=== PATIENT | male | born 1995 | race Caucasian/White ===

== ENCOUNTER 2021-09-09 19:40 | Emergency (ER) | payer OTHER, SELFPAY ==
[2021-09-09 19:43] VITALS: BP 134/82; PULSE 105; RESP 18; TEMP 36.4; O2SAT 100
[2021-09-09 19:46] LABS: Glucose Point of Care 256 mg/dl (65-105)
[2021-09-09 20:37] VITALS: BP 142/93; PULSE 100; RESP 22; O2SAT 96
[2021-09-09] MEDS: ONDANSETRON INJ 4 MG/2 ML VIAL IV PUSH (20:51)
[2021-09-09] MEDS: KETOROLAC 30 MG/ML VIAL (*BKC) IV PUSH (20:52)
[2021-09-09] MEDS: SODIUM CHLORIDE 0.9% IV 1,000 ML 999 ML IV CONT ×2 (20:53→22:17)
[2021-09-09 21:12] LABS: Alveolar/Arterial O2 Gradient 26.5 mmHg; Base Excess ABG -2.4 mEq/l (+/-2.0); Carboxyhemoglobin 1.5 % THb (0-2.0); Fractional Inspired Oxygen 21 %; HCO3 ABG 21.7 mEq/l (22.0-26.0); Methemoglobin ABG 0.3 %THb (0-1.5); Oxygen Content ABG 19.5 %vol (16.0-22.0); Oxyhemoglobin 94.4 % THb (90.0-100.0); PCO2 ABG 35.8 mmHg (35.0-45.0); PO2 ABG 80.4 mmHg (80.0-100.0); PO2 FiO2 Ratio Arterial Blood 3.83 %; Reduced Hemoglobin 3.8 %THb (0-5.0); Total Hemoglobin 14.7 g/dL (12.0-18.0); pH ABG 7.401 (7.350-7.450)
[2021-09-09 21:13] LABS: Device ROOM AIR; Modified Allen's Test Pass; Site Drawn RIGHT RADIAL
[2021-09-09 21:18] LABS: Basophils Percent Auto 0.4 % (0.2-1.2); Eosinophils Absolute Auto 0.1 K/mm3 (0-0.3); Eosinophils Percent Auto 0.5 % (0-4.4); Hematocrit 43.8 % (42.0-52.0); Hemoglobin 15.1 g/dL (14.0-18.0); Immature Granulocyte Absolute 0.03 K/mm3 (0.00-0.031); Immature Granulocyte Percent A 0.3 % (0-0.5); Lymphocytes Absolute Auto 1.11 K/mm3 (0.9-3.2); Lymphocytes Percent Auto 10.9 % (18.3-44.2); Mean Corpuscular HGB Conc 34.5 g/dl (32-36); Mean Corpuscular Hemoglobin 29.8 pg (26-34); Mean Corpuscular Volume 86.4 fl (80-100); Mean Platelet Volume 10.7 fl (7.4-10.4); Monocytes Absolute Auto 0.4 K/mm3 (0.1-0.6); Monocytes Percent Auto 4.2 % (2.6-8.5); Neutrophils Absolute Auto 8.5 K/mm3 (1.3-6.7); Neutrophils Percent Auto 83.7 % (45.5-73.1); Platelet Count Result 187 k/mm3 (150-375); Red Blood Count 5.07 M/mm3 (4.6-6.20); Red Cell Distribution Width 12.9 % (11.5-14.5); White Blood Count 10.2 K/mm3 (4.5-10.0)
[2021-09-09 21:35] LABS: Beta-Hydroxybutyrate/Acetoacetate 2.83 mmol/L (0.02-0.27)
[2021-09-09 21:55] LABS: Alanine Aminotransferase 33 U/L (6-50); Albumin Level 4.1 g/dL (3.5-5.1); Alkaline Phosphatase 105 U/L (38-126); Anion Gap 10 mmol/L (8-16); Aspartate Amino Transferase 55 U/L (17-59); Bilirubin,Total 4.3 mg/dL (0.2-1.3); Blood Urea Nitrogen 19 mg/dL (9-20); Calcium 8.6 mg/dL (8.4-10.2); Carbon Dioxide 23 mmol/L (22-30); Chloride 105 mmol/L (98-107); Estimated CRCL calculation 129 ml/min; Estimated Glomerular Filt Rate > 60; Glucose 264 mg/dL (65-110); Magnesium 1.7 mg/dL (1.6-2.3); Phosphorus 3.5 mg/dL (2.5-4.5); Potassium 4.2 mmol/L (3.4-5.0); Sodium 138 mmol/L (137-145)
--- NOTE | 2021-09-09 22:04 | ED.GENADULT ---
HPI - General Adult General Chief complaint: Nausea/Vomiting/Diarrhea <Delvis Moreno MD - Last Filed: 09/09/21 22:12> Stated complaint: diabetes, cant eat or drink, emesis <Delvis Moreno MD - Last Filed: 09/09/21 22:12> Time Seen by Provider: 09/09/21 19:49 <Delvis Moreno MD - Last Filed: 09/09/21 22:12> History of Present Illness HPI narrative: Patient is a 25-year-old male who presents ER with nausea and vomiting and headache. Patient was recently started on OmniPod. He is doing well but was out of town working. She then started having vomiting. He ended up taking the OmniPod off a day ago. He has not checked his sugars today. He has been sleeping for the last 40 hours according to his mother. Patient reports he just feels weak and tired and nauseated. There is concerned he could have DKA so they brought him into the ER. They did not check sugars. He has no fevers or chills or sweats. Headache is aching and over the crown of his head. <Delvis Moreno MD - Last Filed: 09/09/21 22:12> Related Data Allergies/adverse reactions: Allergies Allergy/AdvReac Type Severity Reaction Status Date / Time No Known Allergies Allergy Unverified 02/19/15 08:07 <Delvis Moreno MD - Last Filed: 09/09/21 22:12> Review of Systems Review of Systems: All systems reviewed & are unremarkable except as noted in HPI and below <Delvis Moreno MD - Last Filed: 09/09/21 22:12> Constitutional: Constitutional: Denies chills, Reports fatigue and Denies fever(s) <Delvis Moreno MD - Last Filed: 09/09/21 22:12> ENT: Denies nasal congestion and Denies sore throat <Delvis Moreno MD - Last Filed: 09/09/21 22:12> Respiratory: Respiratory: Denies cough and Denies dyspnea <Delvis Moreno MD - Last Filed: 09/09/21 22:12> Gastrointestinal: Gastrointestinal: Denies abdominal pain, Denies diarrhea, Reports nausea and Reports vomiting <Delvis Moreno MD - Last Filed: 09/09/21 22:12> Musculoskeletal: Musculoskeletal: Reports myalgias and Denies muscle cramps <Delvsi Moreno MD - Last Filed: 09/09/21 22:12> Neurologic: Denies syncope, Reports headache(s), Denies focal weakness and Denies numbness <Delvis Moreno MD - Last Filed: 09/09/21 22:12> PMFSH Past Medical History Medical History: Medical History (Updated 09/10/21 @ 00:37 by Miladys Stern MD) Diabetes type I History of ulcerative colitis <Delvis Moreno MD - Last Filed: 09/09/21 22:12> Surgical History Surgical History: Surgical History (Updated 09/09/21 @ 22:09 by Delvis Moreno MD) No pertinent past surgical history <Delvis Moreno MD - Last Filed: 09/09/21 22:12> Exam Narrative: GENERAL: Fatigue-appearing, well-nourished, and in no acute distress. HEAD: Normocephalic, atraumatic. EYES: PERRL and EOMI. NECK: Supple. Full range of motion without meningismus. CHEST: Clear to auscultation. No respiratory distress. HEART: Tachycardic and regular. Normal peripheral pulses. ABDOMEN: Soft, nontender, nondistended. EXTREMITIES: Normal range of motion. No edema. SKIN: Warm, dry, no rash. NEURO: Alert and oriented x3. <Delvis Moreno MD - Last Filed: 09/09/21 22:12> Course Reevaluation(s) Reevaluation #1: Patient reports no change in headache after Toradol. Patient has full range of motion of neck without meningismus. No neurologic symptoms. Will give morphine for pain. Offered lumbar puncture which patient declined. <Delvis Moreno MD - Last Filed: 09/09/21 22:12> Date: 09/09/21 <Delvis Moreno MD - Last Filed: 09/09/21 22:12> Time: 22:11 <Delvis Moreno MD - Last Filed: 09/09/21 22:12> Reevaluation #2: PAtient states his headache has resolved. He denies nausea and vomiting. BS still elevated at 266 so will give insulin. Patient to be PO challenged. patient does not have increase AGAP or acidosis consistent with DKA.
[2021-09-09] MEDS: MORPHINE SULFATE (*CRX) 4 MG/ML INJ IV PUSH (22:17)
[2021-09-09 23:06] LABS: Influenza A QL RT-PCR Negative (Negative); Influenza B QL RT-PCR Negative (Negative); SARS-CoV-2 RNA PCR Negative
[2021-09-09 23:24] LABS: Glucose Point of Care 266 mg/dl (65-105)
[2021-09-09 23:55] LABS: Appearance Urine Clear (Clear); Bilirubin Urine 2+ (Negative); Blood Urine Negative (Negative); Color Urine Yellow (Yellow); Glucose Urine UA 2+ mg/dL (Negative); Ketones Urine 4+ mg/dL (Negative); Leukocyte Esterase Ur Negative LEU/UL (Negative); Nitrate Urine Negative (Negative); Protein Urine Trace mg/dL (Negative); Specific Grav Ur >= 1.030 (1.001-1.035); pH Urine 5.5 (5.0-9.0)
[2021-09-10 00:05] LABS: Add Urine Microscopic? YES; Mucus Urine Rare /lpf; RBC Urine 0-2 /hpf (0-2); WBC Urine 0-3 /hpf
[2021-09-10] MEDS: INSULIN HUMAN REGULAR (*BKC) 100 UNITS/ML SUB-Q (00:13)
[2021-09-10 00:19] LABS: Lipase 21 U/L (23-300)
[2021-09-10 00:51] VITALS: BP 129/85; PULSE 96; RESP 22; O2SAT 97
--- NOTE | 2021-09-10 11:31 | PC.NURSE ---
RX was left behind upon patient discharge. RX called into [facility] in [place] after speaking with patient. Patient notified and will last picker.
== END 2021-09-10 01:01 | disposition home or self-care (01) ==
PROVIDERS: General Practice; Emergency Provider Emergency Medicine; PCP Family Medicine
DX: E10.65 Type 1 diabetes mellitus with hyperglycemia (principal); R11.2 Nausea with vomiting, unspecified; R51.9 Headache, unspecified; E86.0 Dehydration; Z20.822 Contact with and (suspected) exposure to COVID-19; Z79.4 Long term (current) use of insulin
CPT/HCPCS: 36415; 36600; 80053; 81001; 82010; 82375; 82805; 82948; 83050; 83690; 83735; 84100; 85025; 87502; 96361; 96374; 96375; 99284; C9803; J1815; J1885; J2270; J2405; J7030; U0003; U0005

== ENCOUNTER 2021-10-27 10:17 | Inpatient (IN) | payer OTHER, SELFPAY ==
[2021-10-27] VITALS (8 sets, daily range): BP systolic 132–142; BP diastolic 86–90; PULSE 82–93; RESP 14–20; TEMP 36.6–36.8; O2SAT 98–100; BMI 27.8
--- NOTE | ~2021-10-27 | US_ITS ---
EXAMINATION: US abdomen limited DATE: 10/27/2021 13:21 INDICATION: Abdominal pain. Vomiting. TECHNIQUE: Multiple grayscale and Doppler ultrasound images of the abdomen were obtained. COMPARISON: CT abdomen and pelvis 10/27/2021 FINDINGS: The visualized portions of the head and body of the pancreas are normal. The liver demonstr ates a nodular surface contour, consistent with cirrhosis. There is normal flow in main portal vein. The gallbladder is decompressed and contains gallstones. Gallbladder wall thickening is likely second buzz to chronic liver disease. There is no sonographic Peterson sign. The common duct is normal and benjie ures 4 mm. IMPRESSION: 1. Cholelithiasis. No specific evidence of acute cholecystitis. 2. Cirrhosis of the liver. Reviewed, dictated and finalized at location A.
--- NOTE | ~2021-10-27 | CT_ITS ---
EXAMINATION: CT abdomen pelvis w con DATE: 10/27/2021 12:02 INDICATION: Vomiting. Leukocytosis. TECHNIQUE: Computed tomography (CT) of the abdomen and pelvis was performed with 100 CC Omnipaque 300 intravenous contrast. Automated exposure control and iterative reconstruction technique were employe d. Exam dose: 520.47 mGy-cm total exam DLP. COMPARISON: 03/03/2015 CT abdomen pelvis FINDINGS: There is minimal dependent atelectasis in the lower lobes. Normal heart size. No pericardial or pleural effusion. There is thickening of the gallbladder wall and minimal pericholecystic fluid, new findings since ; consider acute cholecystitis. No bile duct or pancreatic duct dilatation is detected. No hepatic, splenic, pancreatic, and adrenal or renal space-occupying mass lesion is detected. No urinary tract calculus or hydroureteronephrosis. The urinary bladder and prostate gland are unremarkable. Normal caliber of the abdominal aorta. No intraperitoneal or retroperitoneal or pelvic mass lesion or adenopathy or ascites. Normal appendix. No bowel obstruction, bowel wall thickening, pneumatosis or intraperitoneal free air . IMPRESSION: Gallbladder wall thickening and minimal pericholecystic fluid; consider acute cholecysti tis. Consider gallbladder ultrasound examination and possibly radionuclide hepatobiliary scan as clin ically appropriate Normal appendix Reviewed, dictated and finalized at Location [facility]. Reviewed, dictated and finalized at location B. IMPRESSION: Gallbladder wall thickening and minimal pericholecystic fluid; con manager housekeeping acute cholecystitis. Consider gallbladder ultrasound examination and poss ibly radionuclide hepatobiliary scan as clinically appropriate Normal appendix
[2021-10-27 10:25] LABS: Glucose Point of Care 295 mg/dl (65-105)
[2021-10-27 10:45] LABS: Basophils Absolute Auto 0.1 K/mm3 (0.0-0.1); Basophils Percent Auto 0.4 % (0.2-1.2); Eosinophils Percent Auto 0.3 % (0-4.4); Hematocrit 42.9 % (42.0-52.0); Hemoglobin 15.4 g/dL (14.0-18.0); Immature Granulocyte Absolute 0.07 K/mm3 (0.00-0.031); Immature Granulocyte Percent A 0.5 % (0-0.5); Lymphocytes Absolute Auto 1.51 K/mm3 (0.9-3.2); Lymphocytes Percent Auto 10.6 % (18.3-44.2); Mean Corpuscular HGB Conc 35.9 g/dl (32-36); Mean Corpuscular Hemoglobin 30.4 pg (26-34); Mean Corpuscular Volume 84.6 fl (80-100); Mean Platelet Volume 10.4 fl (7.4-10.4); Monocytes Absolute Auto 0.9 K/mm3 (0.1-0.6); Monocytes Percent Auto 6.4 % (2.6-8.5); Neutrophils Absolute Auto 11.6 K/mm3 (1.3-6.7); Neutrophils Percent Auto 81.8 % (45.5-73.1); Platelet Count Result 204 k/mm3 (150-375); Red Blood Count 5.07 M/mm3 (4.6-6.20); Red Cell Distribution Width 13.2 % (11.5-14.5); White Blood Count 14.2 K/mm3 (4.5-10.0)
[2021-10-27 10:59] LABS: Alanine Aminotransferase 31 U/L (6-50); Alkaline Phosphatase 117 U/L (38-126); Anion Gap 18 mmol/L (8-16); Aspartate Amino Transferase 41 U/L (17-59); Bilirubin,Total 5.2 mg/dL (0.2-1.3); Blood Urea Nitrogen 20 mg/dL (9-20); Calcium 9.4 mg/dL (8.4-10.2); Carbon Dioxide 21 mmol/L (22-30); Chloride 102 mmol/L (98-107); Estimated CRCL calculation 103 ml/min; Estimated Glomerular Filt Rate > 60; Glucose 291 mg/dL (65-110); Magnesium 2.2 mg/dL (1.6-2.3); Phosphorus 3.9 mg/dL (2.5-4.5); Potassium 3.8 mmol/L (3.4-5.0); Sodium 141 mmol/L (137-145)
[2021-10-27 11:03] LABS: Beta-Hydroxybutyrate/Acetoacetate 4.33 mmol/L (0.02-0.27)
--- NOTE | 2021-10-27 11:06 | ED.RECABL ---
HPI - Recheck/Abnormal Lab/Rx General Chief Complaint: Recheck/Abnormal Lab/Rx <Dot Woodall PA-C - Last Filed: 10/27/21 14:48> Stated Complaint: type 1 diabetic, sugar over 350 <Dot Woodall PA-C - Last Filed: 10/27/21 14:48> Time Seen by Provider: 10/27/21 10:58 <Dot Woodall PA-C - Last Filed: 10/27/21 14:48> Source: patient <HESHAM Ramos Last Filed: 10/27/21 14:48> Mode of arrival: ambulatory <HESHAM Ramos Last Filed: 10/27/21 14:48> Limitations: no limitations <Dot Woodall PA-C - Last Filed: 10/27/21 14:48> History of Present Illness HPI narrative: This is a 26-year-old male that presents emergency department for nausea and vomiting. Ongoing over the last couple of days. Associated with elevation in his blood sugar. Reports he has been taking his insulin as prescribed. Has history of type 1 diabetes. No recent illness otherwise. Reports some abdominal pain, mostly with vomiting. Denies fever or diarrhea. <Dot Woodall PA-C - Last Filed: 10/27/21 14:48> Related Data Home Medications: Home Medications Medication Instructions Recorded Confirmed blood-glucose sensor (Dexcom G6 10/27/21 10/27/21 Sensor device) blood-glucose transmitter (Dexcom 10/27/21 10/27/21 G6 Transmitter device) insulin regular human 100 unit/mL See Rx Instructions .Route .COMPLEX 10/27/21 10/27/21 injection solution (Novolin R Regular U-100 Insulin) <HESHAM Ramos Last Filed: 10/27/21 14:48> Allergies/Adverse Reactions: Allergies Allergy/AdvReac Type Severity Reaction Status Date / Time No Known Allergies Allergy Verified 10/27/21 11:44 <HESHAM Ramos Last Filed: 10/27/21 14:48> Review of Systems Review of Systems: CONSTITUTIONAL: Denies fever GASTROINTESTINAL: Reports abdominal pain, nausea, vomiting. Denies diarrhea. GENITOURINARY: Denies dysuria <Dot Woodall PA-C - Last Filed: 10/27/21 14:48> All systems reviewed & are unremarkable except as noted in HPI and below <Dot Woodall PA-C - Last Filed: 10/27/21 14:48> PMFSH Past Medical History Medical History: Medical History Diabetes type I History of ulcerative colitis <Dot Woodall PA-C - Last Filed: 10/27/21 14:48> Surgical History Surgical History: Surgical History No pertinent past surgical history <Dot Woodall PA-C - Last Filed: 10/27/21 14:48> Social History Social History: Social History Smoking status: Former smoker Tobacco type: cigarettes Alcohol intake: current Drinks per week: 2 Substance use: never Spiritual care concerns: No <Dot Woodall PA-C - Last Filed: 10/27/21 14:48> Exam Narrative: GENERAL: Well-appearing, well-nourished, and in no acute distress. HEAD: Normocephalic, atraumatic. EYES: EOMI. CHEST: Clear to auscultation. No respiratory distress. No wheezes rales or rhonchi HEART: Regular rate and rhythm. No murmur heard. Normal peripheral pulses. ABDOMEN: Soft, nondistended, normal active bowel sounds. Mild tenderness to palpation throughout the abdomen, without guarding EXTREMITIES: Normal range of motion. No edema. SKIN: Warm, dry, no rash. NEURO: No focal deficits. Alert and oriented x3. PSYCH: Normal mood and affect <Dot Woodall PA-C - Last Filed: 10/27/21 14:48> Course BULK PLANT AGENT/PA Physician Supervision For this patient encounter, I reviewed the BULK PLANT AGENT or PA documentation, treatment plan, and medical decision making; and I had [id number] time with this patient. <Miladys Stern MD - Last Filed: 10/27/21 19:22> Vital Signs Vital signs: Vital Signs Temperature 98.1 F 10/27/21 10:18 Pulse Rate 93 10/27/21 10:18 Respiratory Rate 16 10/27/21 10:18 Blood P
[2021-10-27 11:31] LABS: Base Excess ABG -4.2 mEq/l (+/-2.0); Carboxyhemoglobin 1.4 % THb (0-2.0); Fractional Inspired Oxygen 21 %; HCO3 ABG 19.4 mEq/l (22.0-26.0); Methemoglobin ABG 0.3 %THb (0-1.5); Oxygen Content ABG 20.6 %vol (16.0-22.0); Oxygen Saturation ABG 97.4 % (95.0-100.0); Oxyhemoglobin 95.6 % THb (90.0-100.0); PCO2 ABG 31.9 mmHg (35.0-45.0); PO2 ABG 96.5 mmHg (80.0-100.0); Reduced Hemoglobin 2.7 %THb (0-5.0); Site Drawn RIGHT RADIAL; Total Hemoglobin 15.3 g/dL (12.0-18.0); pH ABG 7.402 (7.350-7.450)
[2021-10-27 11:32] LABS: Device ROOM AIR; Modified Allen's Test Pass
[2021-10-27] MEDS: FAMOTIDINE 20 MG/2 ML VIAL IV PUSH (11:35)
[2021-10-27] MEDS: ONDANSETRON INJ 4 MG/2 ML VIAL IV PUSH (11:35)
[2021-10-27] MEDS: SODIUM CHLORIDE 0.9% IV 1,000 ML 999 ML IV CONT ×3 (11:35→14:42)
--- NOTE | 2021-10-27 11:40 | PC.NURSE ---
pt unable to provide urine at this time and is refusing straight catheter.
[2021-10-27 12:40] LABS: SARS-CoV-2 RNA PCR Negative
[2021-10-27 13:36] LABS: Appearance Urine Clear (Clear); Bilirubin Urine 1+ (Negative); Blood Urine 1+ (Negative); Color Urine Yellow (Yellow); Glucose Urine UA 2+ mg/dL (Negative); Ketones Urine 4+ mg/dL (Negative); Leukocyte Esterase Ur Negative LEU/UL (Negative); Nitrate Urine Negative (Negative); Protein Urine Trace mg/dL (Negative); Urobilinogen Urine 0.2 mg/dL (<2.0); pH Urine 5.5 (5.0-9.0)
[2021-10-27 13:50] LABS: Mucus Urine Rare /lpf; RBC Urine 0-2 /hpf (0-2); WBC Urine 0-3 /hpf
[2021-10-27 13:54] LABS: Add Urine Microscopic? YES
[2021-10-27 14:06] LABS: Lipase 16 U/L (23-300)
[2021-10-27 14:21] LABS: Hemoglobin A1C 5.9 % (<5.7)
[2021-10-27 14:45] LABS: Glucose Point of Care 255 mg/dl (65-105)
--- NOTE | 2021-10-27 14:58 | PC.NURSE ---
This patient, Jamie Larry, was admitted to Medical Room 261-01. Patient/family oriented to hospital policies and general routines including ID bracelet, bed and alarms, visiting hours, pain management, procedures, bathroom and other care routines, personal items, smoking policy, room service/diet, and visiting hours. Information on how to activate the Rapid Response Team has been discussed. Patient/Family are encouraged to report perceived risks to care and to ask questions if they do not understand what they are told or what they should do.
--- NOTE | 2021-10-27 15:24 | PM.IMHP ---
H&P: HPI History of Present Illness Date/Time: 10/27/21 9480 Chief Complaint: Abnormal labs, glucose greater than 350 at home Narrative: This 26-year-old male patient with significant past medical history of type 1 diabetes mellitus, ulcerative colitis and chronic cirrhosis of the liver presents to the emergency room this morning with complaints of having nausea with vomiting for the past couple of days that is causing his glucose to elevate beyond what it normally is. Patient is normally very well controlled presenting with hemoglobin A1c of 5.9. He does utilize the Omnipod-insulin pump and he sees an annual giving director out of [address] [place] [address]. When his symptoms of nausea and vomiting began he denied any diarrhea and no fevers. As he was unable to maintain his hydration he presented to the emergency room today with complaints of nausea vomiting. On presentation to the emergency room his glucose was greater than 350. Workup was performed that was significant for white blood cell count of 14.2 with elevated absolute neutrophils, however no bandemia. Glucose on labs were recheck to be 291. His LFTs were normal but he does have hyperbilirubinemia with T bili of 5.2. His calculated anion gap is 18 and he is not acidotic as he demonstrates a normal pH on ABG. His beta hydroxy butyrate is 4.33. CT of the abdomen and pelvis demonstrates gallbladder wall thickening and minimal pericholecystic fluid, consider acute cholecystitis. In addition there was noted to be a normal appendix. Ultrasound of the gallbladder was performed based upon results of the CT scan that demonstrated cholelithiasis without any evidence of acute cholecystitis. Secondary finding of cirrhosis of the liver. In discussing the cirrhotic finding with patient he notes that he has had findings of cirrhosis of the liver ever since he was a child. He cannot recall whether not his bilirubin has been elevated in the past. He has been admitted to hospitalist service at this time for hydration, continuing management of nausea and pain. In addition we will trend his beta hydroxybutyrate as well as his metabolic panel to ensure no acidosis. Will consult GI and General surgery as well based upon findings of CT and ultrasound. Upon presentation to the for the patient scored high on the Burnett scale however denies any current suicide ideation. As per hospital policy because he had score high he is being moved to ICU for suicide precautions, although he has no current suicide plan. He will remain on medical patient and not ICU patient, will just be housed in the ICU for further and closer observation. At the time of my assessment patient is lying supine in bed in no acute distress. He has no complaints of chest pain, dyspnea and has not vomited since being here, although he does endorse being nauseated. He has not had any diarrhea. He denies any urinary burning, urgency, frequency, hematuria or dysuria. His specific type of insulin pump is an Omnipod Dash that this provider is familiar with, and his settings were checked according to his PDM. his basal rate is 1.2 units/hour with a ratio of 1:7, with a target glucose of 100 and a correction factor of 1 unit for every multiple of 40 greater than 120 glucose reading. Patient's pump is due to on SaturdayOctober 29 at 18 16. He acknowledges that he does not have any additional polyps with him as this is 1 that does have to be changed every 3 days. In an effort to minimize waste of insulin I am in agreement to allow him to continue to use his current come until at what time it expires in patient is agreeable to bolusing based upon our glucose readings. After expiration of his current pod he will have to transition to sliding scale insulin and he is agreeable. At the time of admission, this patient's home medications were not yet verified, and therefore could not be re-ordered. I do appreciate the following hospitalist for reviewing and
--- NOTE | 2021-10-27 16:39 | PC.NURSE ---
This patient, Jamie Larry, was transferred to ICU on 10/27/21 at 1640. Personal belongings sent with patient. Report given to DANYEL Mesa. Appropriate documentation sent with patient. During admission assessment patient answered questions on [place] Suicide scale that qualified him as a high risk patient. Statements include, I have had suicidal thoughts everyday since I was [age] years-old. I have had prior attempts with the over-administration and/or withholding of insulin. I have made a plan of suicide. Provider notified.
--- NOTE | 2021-10-27 16:55 | PC.NURSE ---
BEFORE PATIENT WAS BROUGHT TO ICU 3 I EXPRESSED TO FLOWER GROWER KASIE Conner RN THAT PATIENT SHOULD NOT HAVE INSULIN PUMP IN HIS CONTROL BECAUSE OF HIS ADMISSION TO CONSIDERING USING INSULIN PUMP TO HARM HIMSELF. KASIE Conner RN STATED THAT HE TALKED TO BORIS LEIGH NP ABOUT OUR CONCERNS BUT SHE FEELS PATIENT CAN SAFELY CONTINUE TO USE HIS INSULIN PUMP.
[2021-10-27] MEDS: SODIUM CHLORIDE 0.9% IV 1,000 ML 125 ML IV CONT (17:06)
[2021-10-27] MEDS: MORPHINE SULFATE (*CRX) 4 MG/ML INJ IV PUSH ×2 (17:07→20:48)
--- NOTE | 2021-10-27 17:24 | PC.NURSE ---
This patient, Jamie Larry, was received from [ [facility]] on 10/27/21 at 1630. Patient/family oriented to unit policies and routines. All belongings were still in patient's possession. Explained to him that he is now on suicidal precautions, why, and that this means all belongings including phone and insulin pump monitor will be locked up. Only thing not removed from patient was the insulin site injector. This site has no controls on it and the only thing patient could do with it is remove it from his arm. Patient denies all suicidal thoughts at this time. Says he has had some suicidal thoughts every day since he was 12; however, he hasn't had any today and doesn't have a current plan of how he would harm himself and he doesn't understand why this is all happening. He did admit that he has had suicidal attempts in the past that he was hospitalized for and that he has had brief in one ear and out the other thoughts about either taking to much insulin or not taking any to try and hurt himself; however he has not had any of these thoughts recently.
[2021-10-27 17:57] LABS: Alanine Aminotransferase 24 U/L (6-50); Albumin Level 3.8 g/dL (3.5-5.1); Alkaline Phosphatase 86 U/L (38-126); Anion Gap 10 mmol/L (8-16); Aspartate Amino Transferase 31 U/L (17-59); Bilirubin,Total 4.1 mg/dL (0.2-1.3); Blood Urea Nitrogen 18 mg/dL (9-20); Calcium 8.4 mg/dL (8.4-10.2); Carbon Dioxide 19 mmol/L (22-30); Chloride 108 mmol/L (98-107); Estimated CRCL calculation 127 ml/min; Estimated Glomerular Filt Rate > 60; Glucose 234 mg/dL (65-110); Sodium 137 mmol/L (137-145)
[2021-10-27 17:58] LABS: Bilirubin Indirect 3.8 mg/dL (0-1.1)
[2021-10-27 18:02] LABS: Beta-Hydroxybutyrate/Acetoacetate 3.85 mmol/L (0.02-0.27)
--- NOTE | 2021-10-27 18:03 | PC.NURSE ---
CALLED BORIS LEIGH NP TO DISCUSS SAFETY ISSUE WITH PATIENT CONTINUING TO USE INSULIN PUMP. SHE GAVE ME ORDERS FOR LANTUS DAILY, SLIDING SCALE INSULIN AND HUNG UP ON ME. INSULIN PUMP WILL BE REMOVED FROM PATIENT AND INSULIN ORDERS INSTITUTED.
[2021-10-27] MEDS: INSULIN HUMAN REGULAR (*BKC) 100 UNITS/ML SUB-Q (18:23)
[2021-10-27 18:28] LABS: Glucose Point of Care 238 mg/dl (65-105)
[2021-10-27 19:04] LABS: Thyroid Stimulating Hormone Reflex 0.479 uIU/mL (0.465-4.68)
[2021-10-27 20:57] LABS: Glucose Point of Care 175 mg/dl (65-105)
[2021-10-27] MEDS: INSULIN GLARGINE (*BKC) 100 UNITS/ML 20 UNITS SUB-Q (21:03)
[2021-10-28] MEDS: INSULIN HUMAN REGULAR (*BKC) 100 UNITS/ML SUB-Q ×4 (00:09→18:05)
[2021-10-28] MEDS: SODIUM CHLORIDE 0.9% IV 1,000 ML 125 ML IV CONT ×3 (00:13→16:26)
[2021-10-28 00:39] LABS: Glucose Point of Care 197 mg/dl (65-105)
[2021-10-28] MEDS: ACETAMINOPHEN 500 MG TABLET 1000 MG PO (00:48)
[2021-10-28 04:29] LABS: Basophils Percent Auto 0.7 % (0.2-1.2); Eosinophils Absolute Auto 0.1 K/mm3 (0-0.3); Eosinophils Percent Auto 2.2 % (0-4.4); Hemoglobin 12.5 g/dL (14.0-18.0); Immature Granulocyte Absolute 0.01 K/mm3 (0.00-0.031); Immature Granulocyte Percent A 0.2 % (0-0.5); Immature Platelet Fraction Pct 3.7 % (0.9-11.2); Lymphocytes Absolute Auto 1.54 K/mm3 (0.9-3.2); Lymphocytes Percent Auto 26.6 % (18.3-44.2); Mean Corpuscular HGB Conc 34.7 g/dl (32-36); Mean Corpuscular Hemoglobin 30.5 pg (26-34); Mean Corpuscular Volume 87.8 fl (80-100); Mean Platelet Volume 10.1 fl (7.4-10.4); Monocytes Absolute Auto 0.5 K/mm3 (0.1-0.6); Monocytes Percent Auto 7.8 % (2.6-8.5); Neutrophils Absolute Auto 3.6 K/mm3 (1.3-6.7); Neutrophils Percent Auto 62.5 % (45.5-73.1); Platelet Count Result 135 k/mm3 (150-375); Red Cell Distribution Width 12.9 % (11.5-14.5); White Blood Count 5.8 K/mm3 (4.5-10.0)
[2021-10-28 04:39] LABS: Alanine Aminotransferase 22 U/L (6-50); Albumin Level 3.3 g/dL (3.5-5.1); Alkaline Phosphatase 79 U/L (38-126); Anion Gap 9 mmol/L (8-16); Aspartate Amino Transferase 28 U/L (17-59); Bilirubin,Total 3.4 mg/dL (0.2-1.3); Blood Urea Nitrogen 14 mg/dL (9-20); Calcium 8.2 mg/dL (8.4-10.2); Carbon Dioxide 22 mmol/L (22-30); Chloride 107 mmol/L (98-107); Estimated CRCL calculation 127 ml/min; Estimated Glomerular Filt Rate > 60; Glucose 158 mg/dL (65-110); Potassium 3.6 mmol/L (3.4-5.0); Sodium 138 mmol/L (137-145)
[2021-10-28 06:00] VITALS: BP 132/84; PULSE 97; RESP 16; TEMP 36.8; O2SAT 97
[2021-10-28 06:12] LABS: Glucose Point of Care 156 mg/dl (65-105)
[2021-10-28 08:00] VITALS: BP 134/88; PULSE 85; RESP 18; TEMP 36.8; O2SAT 98
--- NOTE | 2021-10-28 09:53 | WPDGICN ---
Assessment and Plan Assessment and plan (1) Nausea and vomiting: Code(s): R11.2 - Nausea with vomiting, unspecified Status: Acute Assessment and Plan: he is not vomiting since just before admission. I suspect his nausea vomiting is it due in large part to his poorly controlled diabetes on admission. I am concerned however that he has lost about 10 lb recently and he has had other times when he is nauseated and blood sugar is normal. I told we may want to consider EGD before discharge. (2) Ulcerative colitis: Code(s): K51.90 - Ulcerative colitis, unspecified, without complications Status: Acute Assessment and Plan: This is a remote history. He states that he was diagnosed in [place]. He cannot remember how he was treated. He knows that he had a couple of colonoscopies and he was told that it was resolved. 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 He is not sure if he has been told that he had cirrhosis before. (4) Hyperbilirubinemia: Code(s): E80.6 - Other disorders of bilirubin metabolism Status: Acute Assessment and Plan: His bilirubin is a little high for Gilbert's syndrome. It is probably due to his cirrhosis. Want to rule out other etiologies. If this is from sclerosing cholangitis, I would suspect he would have some itching as well. Serology will be obtained for hepatitis and other studies as well Plan hepatitis serology serum ferritin ceruloplasmin ammonia level GI Consult Note Consult date/time: 10/28/21 09:53 this gentleman was admitted to the hospital because of nausea and vomiting that began a few days ago. He was found have a blood sugar greater than 350. He is on insulin, having been diabetic for 10 years. He uses Omni-pod for insulin delivery. He is followed by an vp digital marketing social media and crm. CT scan of the abdomen was done that showed cholelithiasis and also cirrhosis of the liver. The patient gives an interesting history of having been diagnosed with ulcerative colitis when he was in [place] about 15 years ago he has also is told that he had sclerosing cholangitis. He cannot recall if he was ever jaundiced he. He denies having itching or dark urine at this time. He states he is not a heavy drinker and has not had hepatitis. His bilirubin is elevated but transaminases are normal. He states that he has lost about 10 lb recently. He often has an upset stomach and is uncomfortable in the epigastric area now HPI: Jamie Larry is a 26 year old male Admitted with nausea, vomiting and diabetes of control. There also were concerns about depression or suicide ideas and therefore he was moved to intensive care unit. Review of Systems Review of Systems: All systems reviewed & are unremarkable except as noted in HPI and below PMFSH Past Medical History Medical History Diabetes type I History of ulcerative colitis Surgical History Surgical History No pertinent past surgical history Social History Social History Smoking status: Former smoker Tobacco type: cigarettes Alcohol intake: current Drinks per week: 2 Substance use: never Spiritual care concerns: No Meds Home Medications and Allergies Home Medications Medication Instructions Recorded Confirmed Type blood-glucose sensor (Dexcom G6 10/27/21 10/27/21 History Sensor device) blood-glucose transmitter (Dexcom 10/27/21 10/27/21 History G6 Transmitter device) insulin regular human 100 unit/mL See Rx Instructions .Route .COMPLEX 10/27/21 10/27/21 History injection solution (Novolin R
[2021-10-28 10:57] LABS: Ammonia < 9 umol/L (9-30)
--- NOTE | 2021-10-28 11:57 | PM.CNGS ---
Assessment and Plan Assessment and plan (1) Cholelithiasis and acute cholecystitis without obstruction: Code(s): K80.00 - Calculus of gallbladder with acute cholecystitis without obstruction Status: Acute Assessment and Plan: I have reviewed the CT and ultrasound and discussed the findings with the patient. He has evidence of acute calculous cholecystitis, but is also showing elevated liver enzymes and signs of cirrhosis on the ultrasound. Will have to get coags to see if his cirrhosis is more advanced which would make him a higher risk for surgical intervention. If coags are within normal range, then could consider laparoscopic cholecystectomy with intraoperative cholangiogram either during this admission or at a later date. Have discussed dietary modifications in the meantime as well. Will try to advance patient to a low fat diet. Await further workup by GI. (2) Nausea and vomiting: Code(s): R11.2 - Nausea with vomiting, unspecified Status: Acute (3) Ulcerative colitis: Code(s): K51.90 - Ulcerative colitis, unspecified, without complications Status: Acute (4) Cirrhosis: Code(s): K74.60 - Unspecified cirrhosis of liver Status: Acute (5) Hyperbilirubinemia: Code(s): E80.6 - Other disorders of bilirubin metabolism Status: Acute (6) T1DM (type 1 diabetes mellitus): Qualifiers: Diabetes mellitus complication status: with hyperglycemia Qualified Code(s): E10.65 - Type 1 diabetes mellitus with hyperglycemia Code(s): E10.9 - Type 1 diabetes mellitus without complications Status: Acute History of Present Illness Consult details Consult date: 10/28/21 Reason for consult: gallstones Requesting physician: Kim Bland APN-C Narrative: This is a 26-year-old man who I am asked to see for recent findings of cholelithiasis. He presented to the emergency department on 10/27/2021 and was admitted to the ICU with suicidal ideations. He presented with nausea and vomiting and epigastric abdominal pain. Patient states that he has had poor appetite for the past 3 days. Yesterday he began experiencing nausea, vomiting, and epigastric abdominal pain. He does not recall anything in particular that he ate that caused this. He states that he has had occasional stomach aches before but never anything this severe. He does have a history of type 1 diabetes and ulcerative colitis. He has had liver biopsies in the past and thinks that he had a liver biopsy done at [facility] in [place]. He does not recall what the biopsy results showed and does not know of any history of cirrhosis or other liver disease. His pain is only mild now and he reports no further nausea or vomiting. Review of Systems Review of Systems: All systems reviewed & are unremarkable except as noted in HPI and below Constitutional: Constitutional: Denies chills and Denies fever(s) Eyes: Eyes: Denies change in vision ENT: Denies hearing loss, Denies neck pain and Denies sore throat Cardiovascular: Cardiovascular: Denies chest pain and Denies dyspnea Respiratory: Respiratory: Denies cough, Denies dyspnea and Denies wheezing Gastrointestinal: Gastrointestinal: Reports as per HPI Genitourinary: Genitourinary: Denies hematuria and Denies dysuria Musculoskeletal: Musculoskeletal: Denies arthralgias, Denies joint swelling and Denies neck pain Psychiatric: Psychiatric: Reports as per HPI Allergic/Immunologic: Allergic/Immunologic: Denies wheezing PMFSH Past Medical History Medical History Diabetes type I History of ulcerative colitis Surgical History Surgical History No pertinent past surgical history Social History Social History Smoking status: Former smoker Tobacco type: cig
[2021-10-28 12:10] LABS: Glucose Point of Care 275 mg/dl (65-105)
[2021-10-28 12:14] LABS: Hepatitis B Surface Antigen Negative (Negative)
[2021-10-28 12:20] LABS: HAV RESULT Negative (Negative); Hepatitis B Core IgM Result Negative (Negative)
[2021-10-28 12:31] LABS: Hepatitis C Virus Antibody Negative (Negative)
[2021-10-28] MEDS: MORPHINE SULFATE (*CRX) 4 MG/ML INJ IV PUSH ×2 (12:54→17:35)
--- NOTE | 2021-10-28 12:59 | PM.IMPN ---
Progress Note: A&P Assessment and Plan (1) Acute dehydration: Code(s): E86.0 - Dehydration Status: Acute Assessment and Plan: - definitive etiology unknown. - Continue IVF of NS at 125 ml/hr - NPO - She does history of type 1 diabetes mellitus, continue to monitor for acidosis. - Recheck beta hydroxybutyrate and CMP at 6:00 p.m. today. - Calculated anion gap is 18. ( Normal is 3-10.) - Not acidotic according to normal pH. - Continue to monitor labs and vitals. (2) T1DM (type 1 diabetes mellitus): Qualifiers: Diabetes mellitus complication status: with hyperglycemia Qualified Code(s): E10.65 - Type 1 diabetes mellitus with hyperglycemia Code(s): E10.9 - Type 1 diabetes mellitus without complications Status: Acute Assessment and Plan: - Not acidotic as noted per ABG in ER. - Continue to monitor for metabolic acidosis. - Timed beta hydroxybutyrate and CMP scheduled for 1800 this evening. - Currently NPO secondary to acute dehydration. - continue insulin pump, protocol is ordered With settings. - Hypoglycemic protocol - glucose checks every 6 hours while NPO, then changed to a.c. and HS Once patient is tolerating oral intake - pump settings as follows: Basal rate of 1.2 units/hour, insulin to carb ratio is 1 unit: 7 g of carbs, target of 100 glucose, correction factor of 1 unit for every 40 dL of glucose over 120 dL. - Pump is set to on Sunday 10/29 at 1816. - Continue to monitor labs and VS. - A1C = 5.9 - Patient's current POD expires on Saturday10/29/21 at 1816. (3) Hyperbilirubinemia: Code(s): E80.6 - Other disorders of bilirubin metabolism Status: Acute Assessment and Plan: - 5.2 Total Bilirubin - Check indirect and direct - Suspicion that it is chronic in nature, given pt's known history of being told that his liver is Cirrhotic, and he has had an elevated T-Bili here in the past on other visits. However, he denies ever knowing that he had an elevated Bilirubin. His Imaging here today from ER indicate possible Gall Bladder involvement as well. - Consult GI for Hyperbilirubinemia and Ulcerative Colitis, and Consult Gen Sgy for Cholelithiasis in setting of Hyperbilirubinemia. (4) Suicidal ideations: Code(s): R45.851 - Suicidal ideations Status: Acute Assessment and Plan: - Pt. with remote history of Suicidal ideations, and does admit that he often thinks about it, but denies any SI at this present time. - Suicide precautions ordered. - Oil Separator to place in medical bed within ICU. (5) Ulcerative colitis: Code(s): K51.90 - Ulcerative colitis, unspecified, without complications Status: Acute Assessment and Plan: - History of, see above plan of care (6) Cirrhosis: Code(s): K74.60 - Unspecified cirrhosis of liver Status: Acute Assessment and Plan: - History of, see above plan of care. Plan At the time of admission, this patient's home medications were not yet verified, and therefore could not be re-ordered. I do appreciate the following hospitalist for reviewing and re-ordering the patient's home medications. Additional Plan 10/28/2021 Consults noted. Patient is clinically stable. Plan is to continue with close observation. Subjective Date/time seen: 10/28/21 12:59 Patient was seen during the morning rounds today. Patient is more awake and alert. Patient mood is better. No shortness of breath or chest pain. No abdominal pain, nausea, no vomiting. Review of Systems Review of Systems: All systems reviewed & are unremarkable except as noted in HPI and below Exam Const: General: in distress (Secondary to abdominal pain) moderate and uncomfortable HENMT: Ears: TM's normal bilaterally General nose exam: Normal nares present Mouth: Yes moist mucous membranes Eyes: General: appearance normal, both eyes and all related structures Sclera: sclerae
[2021-10-28 14:00] VITALS: BP 160/95; PULSE 73; RESP 16; TEMP 36.8; O2SAT 98
[2021-10-28 17:41] LABS: Glucose Point of Care 334 mg/dl (65-105)
[2021-10-28] MEDS: ACETAMINOPHEN 325 MG TABLET 650 MG PO (20:05)
[2021-10-28] MEDS: ACETAMINOPHEN/ASPIRIN/CAFFEINE 250-250-65 MG TABLET 1 TABLET PO (22:00)
[2021-10-28] MEDS: INSULIN GLARGINE (*BKC) 100 UNITS/ML 20 UNITS SUB-Q (22:00)
[2021-10-28 22:27] LABS: Glucose Point of Care 297 mg/dl (65-105)
[2021-10-28] MEDS: MAG HYDROX/AL HYDROX/SIMETH 30 ML UDC PO (22:33)
[2021-10-29] VITALS: BP 190/90; PULSE 70; RESP 18; TEMP 36.9; O2SAT 97
[2021-10-29] MEDS: MORPHINE SULFATE (*CRX) 4 MG/ML INJ IV PUSH ×3 (00:18→20:53)
[2021-10-29] MEDS: INSULIN HUMAN REGULAR (*BKC) 100 UNITS/ML SUB-Q ×5 (00:19→23:28)
[2021-10-29] MEDS: KETOROLAC 30 MG/ML VIAL (*BKC) IV PUSH (00:19)
[2021-10-29 00:20] LABS: Glucose Point of Care 331 mg/dl (65-105)
[2021-10-29] MEDS: SODIUM CHLORIDE 0.9% IV 1,000 ML 125 ML IV CONT ×3 (00:20→17:40)
[2021-10-29 02:02] VITALS: BP 141/80
[2021-10-29 04:46] VITALS: BP 129/74; O2SAT 97
[2021-10-29 05:13] LABS: Glucose Point of Care 229 mg/dl (65-105)
[2021-10-29 05:50] LABS: Partial Thromboplastin Time 27.5 SECONDS (22.3-36.8); Prothrombin Time 12.8 Seconds (11.1-14.7)
--- NOTE | 2021-10-29 08:51 | PM.IMPN ---
Progress Note: A&P Assessment and Plan (1) Acute dehydration: Code(s): E86.0 - Dehydration Status: Acute Assessment and Plan: - definitive etiology unknown. - Continue IVF of NS at 125 ml/hr - NPO - She does history of type 1 diabetes mellitus, continue to monitor for acidosis. - Recheck beta hydroxybutyrate and CMP at 6:00 p.m. today. - Calculated anion gap is 18. ( Normal is 3-10.) - Not acidotic according to normal pH. - Continue to monitor labs and vitals. (2) T1DM (type 1 diabetes mellitus): Qualifiers: Diabetes mellitus complication status: with hyperglycemia Qualified Code(s): E10.65 - Type 1 diabetes mellitus with hyperglycemia Code(s): E10.9 - Type 1 diabetes mellitus without complications Status: Acute Assessment and Plan: - Not acidotic as noted per ABG in ER. - Continue to monitor for metabolic acidosis. - Timed beta hydroxybutyrate and CMP scheduled for 1800 this evening. - Currently NPO secondary to acute dehydration. - continue insulin pump, protocol is ordered With settings. - Hypoglycemic protocol - glucose checks every 6 hours while NPO, then changed to a.c. and HS Once patient is tolerating oral intake - pump settings as follows: Basal rate of 1.2 units/hour, insulin to carb ratio is 1 unit: 7 g of carbs, target of 100 glucose, correction factor of 1 unit for every 40 dL of glucose over 120 dL. - Continue to monitor labs and VS. - A1C = 5.9 (3) Hyperbilirubinemia: Code(s): E80.6 - Other disorders of bilirubin metabolism Status: Acute Assessment and Plan: - 5.2 Total Bilirubin - Check indirect and direct - Suspicion that it is chronic in nature, given pt's known history of being told that his liver is Cirrhotic, and he has had an elevated T-Bili here in the past on other visits. However, he denies ever knowing that he had an elevated Bilirubin. His Imaging here today from ER indicate possible Gall Bladder involvement as well. - Consult GI for Hyperbilirubinemia and Ulcerative Colitis, and Consult Gen Sgy for Cholelithiasis in setting of Hyperbilirubinemia. (4) Suicidal ideations: Code(s): R45.851 - Suicidal ideations Status: Acute Assessment and Plan: - Pt. with remote history of Suicidal ideations, and does admit that he often thinks about it, but denies any SI at this present time. - Suicide precautions ordered. (5) Ulcerative colitis: Code(s): K51.90 - Ulcerative colitis, unspecified, without complications Status: Acute Assessment and Plan: - History of, see above plan of care (6) Cirrhosis: Code(s): K74.60 - Unspecified cirrhosis of liver Status: Acute Assessment and Plan: - History of, see above plan of care. Plan Stable Additional Plan 10/28/2021 Consults noted. Patient is clinically stable. Plan is to continue with close observation. 10/29/2021 No new overnight event noted. Patient is feeling slightly better. Plan is to continue current treatment and crisis intervention. Monitor labs Subjective Date/time seen: 10/29/21 08:51 Patient was seen during the morning rounds today. Abdominal pain is slightly better. No shortness of breath or chest pain. Mood is also slightly better. No new overnight events. Review of Systems Review of Systems: All systems reviewed & are unremarkable except as noted in HPI and below Exam Const: General: uncomfortable HENMT: Ears: TM's normal bilaterally General nose exam: Normal nares present Mouth: Yes moist mucous membranes Eyes: General: appearance normal, both eyes and all related structures Sclera: sclerae normal (No icterus present despite the patient's elevated Bilirubin.) Pupils: Equal, round and reactive pupils present EOM: EOMs intact bilaterally Neck: Neck: supple and no JVD Chest: Other: Not tender to palpation. Resp: Effort & Inspection: normal respir
[2021-10-29] MEDS: ACETAMINOPHEN 325 MG TABLET 650 MG PO ×3 (09:13→23:33)
[2021-10-29] MEDS: HEPARIN SODIUM 5,000 UNITS/ML VIAL 5000 UNITS SUB-Q ×2 (09:13→20:41)
[2021-10-29 09:26] VITALS: BP 144/103; PULSE 74; TEMP 36.1; O2SAT 95
--- NOTE | 2021-10-29 10:39 | PM.PNGS ---
Progress Note: A&P Assessment and Plan (1) Cholelithiasis and acute cholecystitis without obstruction: Code(s): K80.00 - Calculus of gallbladder with acute cholecystitis without obstruction Status: Acute Assessment and Plan: PT and INR are within normal range. Discussed with patient that with findings of cirrhosis there are some increased risks of bleeding with surgery. Risk of major bleeding should be minimal given the normal bleeding times. He continues to have pain off and on, likely related to his gallbladder. Patient would like to have gallbladder removed as soon as possible. Discussed possibly proceeding with laparoscopic cholecystectomy tomorrow if remaining medically stable. Will plan to make patient NPO after midnight in anticipation for possible Laparoscopic cholecystectomy tomorrow. I discussed the procedure, risks, benefits, and alternatives with patient. (2) Nausea and vomiting: Code(s): R11.2 - Nausea with vomiting, unspecified Status: Acute (3) Acute dehydration: Code(s): E86.0 - Dehydration Status: Acute (4) T1DM (type 1 diabetes mellitus): Qualifiers: Diabetes mellitus complication status: with hyperglycemia Qualified Code(s): E10.65 - Type 1 diabetes mellitus with hyperglycemia Code(s): E10.9 - Type 1 diabetes mellitus without complications Status: Acute (5) Hyperbilirubinemia: Code(s): E80.6 - Other disorders of bilirubin metabolism Status: Acute (6) Cirrhosis: Code(s): K74.60 - Unspecified cirrhosis of liver Status: Acute (7) Ulcerative colitis: Code(s): K51.90 - Ulcerative colitis, unspecified, without complications Status: Acute Subjective Subjective Date/Time Seen: 10/29/21 10:39 Interval history: Patient's abdominal pain is mild. Mostly complaining of headache right now. Nausea resolved and tolerating low-fat diet. Patient states he has been having these abdominal pains and nausea off and on for the past several weeks and he would prefer to just get the gallbladder removed as soon as possible. Exam GI: Inspection: non-distended GI Palp: Yes Soft to palpation, No Tenderness to palpation present (GI) and No Guarding due to palpation present (GI) Objective Data Vital Signs Vital Signs: Vital Signs - 24 hr 10/28/21 14:00 10/28/21 20:00 10/29/21 00:00 Temperature 36.8 C 36.9 C Pulse Rate 73 70 Respiratory Rate 16 18 Blood Pressure 160/95 H 190/90 H Pulse Oximetry 98 97 Oxygen Delivery Room Air 10/29/21 02:02 10/29/21 04:46 10/29/21 09:26 Temperature 36.1 C L Pulse Rate 74 Respiratory Rate Blood Pressure 141/80 H 129/74 144/103 H Pulse Oximetry 97 95 Oxygen Delivery 10/29/21 08:00 Temperature Pulse Rate Respiratory Rate Blood Pressure Pulse Oximetry Oxygen Delivery Room Air Intake/Output Intake/Output: Intake & Output 10/26/21 10/27/21 10/28/21 10/29/21 23:59 23:59 23:59 23:59 Intake Total 2440 4660 2540 Output Total 600 Balance 1840 4660 2540 Meds/Results Medications: Active Medications Generic Name Dose Route Start Last Admin Trade Name Freq PRN Reason Stop Dose Admin Acetaminophen 650 mg 10/28/21 19:39 10/29/21 09:13 Acetaminophen 325 Mg Tablet PO 650 mg Q6H PRN Administration Mild Pain (1-3) or Fever Acetaminophen/Aspirin/Caffeine 1 tablet 10/28/21 21:50 10/28/21 22:00 Acetaminophen/Aspirin/Caffeine 250-250-65 Mg Tablet PO 1 tablet Q6H PRN Administration Pain Rated 1-3 Dextrose 12.5 gm 10/27/21 15:24 Dextrose 50% 25 Gm/50 Ml Syringe IV PUSH PRN PRN Hypoglycemia Protocol Glucagon 1 mg 10/27/21 15:24 Glucagon For Inj 1 Mg Vial IM PRN PRN Hypoglycemia Protocol Glucose 15 gm 10/27/21 15:24 Glucose Oral Gel 15 Gm Of Glucse In 37.5 Gm Tube PO PRN PRN Hypoglycemia Protocol Heparin Sodium (Porcine) 5,000 units
--- NOTE | 2021-10-29 10:45 | WPDGIPROGNO ---
Progress Note: A&P Assessment and Plan (1) Nausea and vomiting: Code(s): R11.2 - Nausea with vomiting, unspecified Status: Acute Assessment and Plan: ?he is not vomiting since just before admission.? I suspect his nausea vomiting is it due in large part to his poorly controlled diabetes on admission.? I am concerned however that he has lost about 10 lb recently and he has had other times when he is nauseated and blood sugar is normal.? I told we may want to consider EGD before discharge. This could also be done as an outpatient (2) Ulcerative colitis: Code(s): K51.90 - Ulcerative colitis, unspecified, without complications Status: Acute Assessment and Plan: this was diagnosed quite a while back in [place]. He has not been on medication for long time and does not seem to have any symptoms now that would suggest active colitis. He states he only took medication for short time which is unusual for ulcerative colitis. 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 He does not have typical symptoms such as chronic jaundice and pruritus. Consequently I am looking for other causes of cirrhosis and have ordered serological studies (4) Hyperbilirubinemia: Code(s): E80.6 - Other disorders of bilirubin metabolism Status: Acute Assessment and Plan: this is likely due to his cirrhosis as the bilirubin is a little too high to simply blaming on Gilbert's syndrome (5) Cholelithiasis and acute cholecystitis without obstruction: Code(s): K80.00 - Calculus of gallbladder with acute cholecystitis without obstruction Status: Acute Assessment and Plan: surgery is on board, I suspect that he will have a laparoscopic cholecystectomy before discharge unless the patient likes to go home and come back as an outpatient Subjective Date/time seen: 10/29/21 10:45 He is tolerating his diet. He is not having any acute gastrointestinal complaints. He is eager to go home. Exam Const: General: cooperative Cardio: Rate: regular rate Rhythm: regular rhythm GI: Inspection: non-distended GI Palp: Yes Soft to palpation, No Tenderness to palpation present (GI) and No Guarding due to palpation present (GI) Objective Data Vital Signs Vital Signs: Vital Signs - 24 hr 10/28/21 14:00 10/28/21 20:00 10/29/21 00:00 Temperature 36.8 C 36.9 C Pulse Rate 73 70 Respiratory Rate 16 18 Blood Pressure 160/95 H 190/90 H Pulse Oximetry 98 97 Oxygen Delivery Room Air 10/29/21 02:02 10/29/21 04:46 10/29/21 09:26 Temperature 36.1 C L Pulse Rate 74 Respiratory Rate Blood Pressure 141/80 H 129/74 144/103 H Pulse Oximetry 97 95 Oxygen Delivery 10/29/21 08:00 Temperature Pulse Rate Respiratory Rate Blood Pressure Pulse Oximetry Oxygen Delivery Room Air Intake/Output Intake/Output: Intake & Output 10/26/21 10/27/21 10/28/21 10/29/21 23:59 23:59 23:59 23:59 Intake Total 2440 4660 2540 Output Total 600 Balance 1840 4660 2540 Meds/Results Medications: Active Medications Generic Name Dose Route Start Last Admin Trade Name Freq PRN Reason Stop Dose Admin Acetaminophen 650 mg 10/28/21 19:39 10/29/21 09:13 Acetaminophen 325 Mg Tablet PO 650 mg Q6H PRN Administration Mild Pain (1-3) or Fever Acetaminophen/Aspirin/Caffeine 1 tablet 10/28/21 21:50 10/28/21 22:00 Acetaminophen/Aspirin/Caffeine 250-250-65 Mg Tablet PO 1 tablet Q6H PRN Administration Pain Rated 1-3 Dextrose 12.5 gm 10/27/21 15:24 Dextrose 50% 25 Gm/50 Ml Syringe IV PUSH PRN PRN Hypoglycemia Protocol Glucagon 1 mg 10/27/21 15:24 Glucagon For Inj 1 Mg Vial IM PRN PRN Hypoglycemia Protocol Glucose 15 gm 10/27/21 15:24
[2021-10-29 12:31] LABS: Glucose Point of Care 274 mg/dl (65-105)
[2021-10-29 16:27] VITALS: BP 148/105; PULSE 71; RESP 14; TEMP 36.4; O2SAT 91
[2021-10-29 17:26] LABS: Glucose Point of Care 283 mg/dl (65-105)
[2021-10-29] MEDS: IBUPROFEN 400 MG TABLET 800 MG PO (17:40)
[2021-10-29] MEDS: INSULIN GLARGINE (*BKC) 100 UNITS/ML 20 UNITS SUB-Q (20:39)
[2021-10-29 20:52] LABS: Glucose Point of Care 330 mg/dl (65-105)
[2021-10-29 23:26] VITALS: BP 179/99; PULSE 72; RESP 20; TEMP 36.9
[2021-10-29 23:30] LABS: Glucose Point of Care 253 mg/dl (65-105)
[2021-10-30] VITALS (18 sets, daily range): BP systolic 136–169; BP diastolic 79–104; PULSE 68–113; RESP 18–25; TEMP 36.8–37.8; O2SAT 91–100
[2021-10-30] MEDS: SODIUM CHLORIDE 0.9% IV 1,000 ML 125 ML IV CONT ×3 (01:02→19:58)
[2021-10-30] MEDS: MORPHINE SULFATE (*CRX) 4 MG/ML INJ IV PUSH ×5 (01:02→23:54)
[2021-10-30] MEDS: IBUPROFEN 400 MG TABLET 800 MG PO ×2 (04:16→13:50)
[2021-10-30 04:44] LABS: Hematocrit 35.3 % (42.0-52.0); Immature Platelet Fraction Pct 4.1 % (0.9-11.2); Mean Corpuscular HGB Conc 36.8 g/dl (32-36); Mean Corpuscular Hemoglobin 30.4 pg (26-34); Mean Corpuscular Volume 82.7 fl (80-100); Mean Platelet Volume 10.2 fl (7.4-10.4); Platelet Count Result 131 k/mm3 (150-375); Red Blood Count 4.27 M/mm3 (4.6-6.20); Red Cell Distribution Width 12.4 % (11.5-14.5); White Blood Count 5.9 K/mm3 (4.5-10.0)
[2021-10-30 04:57] LABS: Alanine Aminotransferase 19 U/L (6-50); Alkaline Phosphatase 76 U/L (38-126); Anion Gap 6 mmol/L (8-16); Aspartate Amino Transferase 20 U/L (17-59); Bilirubin,Total 1.6 mg/dL (0.2-1.3); Blood Urea Nitrogen 8 mg/dL (9-20); Calcium 8.3 mg/dL (8.4-10.2); Carbon Dioxide 28 mmol/L (22-30); Chloride 107 mmol/L (98-107); Estimated CRCL calculation 127 ml/min; Estimated Glomerular Filt Rate > 60; Glucose 132 mg/dL (65-110); Potassium 3.2 mmol/L (3.4-5.0); Sodium 141 mmol/L (137-145)
[2021-10-30] MEDS: CHLORHEXIDINE GLUCONATE 4% SOL 120 ML BTL 1 APPLIC TOPICAL (06:17)
[2021-10-30 06:20] LABS: Glucose Point of Care 112 mg/dl (65-105)
[2021-10-30] MEDS: ACETAMINOPHEN/ASPIRIN/CAFFEINE 250-250-65 MG TABLET 1 TABLET PO (06:21)
--- NOTE | 2021-10-30 08:12 | WPDHPUPDATE1 ---
History and Physical Update Update Date/Time: 10/30/21 08:12 History and Physical has been reviewed, including an updated exam of the patient. There are NO changes in the patient's condition. Risks, benefits, and alternatives have been discussed and questions answered. Patient agrees to proceed with procedure.
[2021-10-30] MEDS: LACTATED RINGERS 1,000 ML 30 ML IV CONT ×2 (08:19→09:55)
--- NOTE | 2021-10-30 08:28 | PC.NURSE ---
805-Patient taken to surgery per bed.
--- NOTE | 2021-10-30 08:28 | WPDANESEPPF ---
Anes - Initial Pre Proc Eval Procedure: Operation Date: 10/30/21 09:00 Proposed Procedures p Laparoscopic Cholecystectomy,Possible Open - Minnie Rodas MD Date/Time: 10/30/21 08:28 Surgeon: Noa Leyva MD Pre Op Diagnosis: Dehydration Patient Data Age: 26 Gender: M Height: 1.8 m Weight: 90.7 kg Last Vital Signs Temp 36.9 C 10/29/21 23:26 Pulse 70 10/30/21 04:47 Resp 20 10/29/21 23:26 BP 160/98 H 10/30/21 04:47 Pulse Ox 91 10/29/21 16:27 O2 Del Method Room Air 10/29/21 20:00 Allergies Allergy/AdvReac Type Severity Reaction Status Date / Time No Known Allergies Allergy Verified 10/27/21 11:44 Home Medications Medication Instructions Recorded Confirmed Type blood-glucose sensor (Dexcom G6 10/27/21 10/27/21 History Sensor device) blood-glucose transmitter (Dexcom 10/27/21 10/27/21 History G6 Transmitter device) insulin regular human 100 unit/mL See Rx Instructions .Route .COMPLEX 10/27/21 10/27/21 History injection solution (Novolin R Regular U-100 Insulin) Laboratory Tests 10/29/21 10/29/21 10/29/21 12:29 17:24 20:39 WBC RBC Hgb Hct MCV MCH MCHC RDW Plt Count MPV % Immature Plt Fraction Sodium Potassium Chloride Carbon Dioxide Anion Gap BUN Creatinine Estim Creat Clear Calc Estimated GFR Glucose POC Capillary Glucose 274 mg/dl H mg/dl 283 mg/dl H mg/dl 330 mg/dl H mg/dl (65-105) (65-105) (65-105) Calcium Total Bilirubin AST ALT Alkaline Phosphatase Total Protein Albumin Blood Type Antibody Screen 10/29/21 10/30/21 10/30/21 23:25 04:30 04:30 WBC 5.9 K/mm3 K/mm3 (4.5-10.0) RBC 4.27 M/mm3 L M/mm3 (4.6-6.20) Hgb 13.0 g/dL L g/dL (14.0-18.0) Hct 35.3 % L % (42.0-52.0) MCV 82.7 fl D fl (80-100) MCH 30.4 pg pg (26-34) MCHC 36.8 g/dl H g/dl (32-36) RDW 12.4 % % (11.5-14.5) Plt Count 131 k/mm3 L k/mm3 (150-375) MPV 10.2 fl fl (7.4-10.4) % Immature Plt Fraction 4.1 % % (0.9-11.2) Sodium 141 mmol/L mmol/L (137-145) Potassium 3.2 mmol/L L mmol/L (3.4-5.0) Chloride 107 mmol/L mmol/L (98-107) Carbon Dioxide 28 mmol/L mmol/L (22-30) Anion Gap 6 mmol/L L mmol/L (8-16) BUN 8 mg/dL L D mg/dL (9-20) Creatinine 0.80 mg/dL mg/dL (0.7-1.3) Estim Creat Clear Calc 127 ml/min ml/min Estimated GFR > 60 (59 - ) Glucose 132 mg/dL H mg/dL (65-110) POC Capillary Glucose 253 mg/dl H mg/dl (65-105) Calcium 8.3 mg/dL L mg/dL (8.4-10.2) Total Bilirubin 1.6 mg/dL H mg/dL (0.2-1.3) AST 20 U/L U/L (17-59) ALT 19 U/L U/L (6-50) Alkaline Phosphatase 76 U/L U/L (38-126) Total Protein 6.0 g/dL L g/dL (6.3-8.2) Albumin 3.0 g/dL L g/dL (3.5-5.1) Blood Type Antibody Screen 10/30/21 10/30/21 04:30 06:16 WBC RBC Hgb Hct MCV MCH MCHC RDW Plt Count MPV % Immature Plt Fraction Sodium Potassium Chloride Carbon Dioxide Anion Gap BUN Creatinine Estim Creat Clear Calc Estimated GFR Glucose POC Capillary Glucose 112 mg/dl H mg/dl (65-105) Calcium Total Bilirubin AST ALT Alkaline Phosphatase
--- NOTE | 2021-10-30 09:58 | W.PM.PROC2 ---
Procedure Note - Detailed Date of Procedure 10/30/21 Pre-op Diagnosis acute cholecystitis Post-op Diagnosis Same Procedure Performed Laparoscopic cholecystectomy Surgeon Minnie Rodas MD Anesthesia General Indications 26 y/o M c multiple med issues including DM, liver dz presenting c acute cholecystitis Findings nodular, cirrhotic liver, cholecystitis Description of Procedure The patient was taken to the operating room placed in the supine position. After adequate induction of general anesthesia, the patient was prepped and draped in normal sterile fashion. A time-out was then performed to verify the patient's identity as well as the procedure being performed. I then made a 5 mm incision in the infraumbilical region. Through this, a Veress needle was placed into the peritoneal cavity and CO2 gas was then insufflated. After adequate pneumoperitoneum was achieved, the Veress needle was removed and a 5 mm optiview trocar was placed through this incision under direct visualization. I then placed the laparoscope through this trocar site and under direct visualization placed a further 12 mm subxiphoid port as well as 2 additional 5 mm ports in the right upper abdomen. The liver was noted to be hard and nodular consistent with known liver disease. The gallbladder was then identified and was noted to be moderately inflamed and distended. I was able to place a grasper at the dome of the gallbladder and this was retracted anterior and cephalad up over the liver. A 2nd retractor was then placed at the infundibulum and retracted laterally, this allowed visualization of the triangle of Calot. I then was able to visualize the cystic duct in its entirety from its proximal insertion into the gallbladder, to its distal junction with the common hepatic/common bile duct junction. At this point, I carefully skeletonized the proximal cystic duct with the [place] dissector. I then clipped and transected the proximal cystic duct. Next I visualized the cystic artery. Again the artery was skeletonized, clipped, and transected. I then used the Bovie cautery to take down the peritoneal attachments of the gallbladder off the liver bed. This was somewhat difficult given the amount of inflammation in the posterior space. Also there was small arterial branches in the posterior space that bled and needed to be controlled with both clips and cautery. The liver was quite friable and oozing was noted throughout the dissection. Once the gallbladder specimen was completely detached, an endo-pouch was placed through the 12 mm port site. I then placed the gallbladder specimen into the Endo pouch and removed the endo-pouch from the 12 mm port site. The specimen will now be sent to pathology for further review. I then copiously irrigated the right upper quadrant. Some mild oozing was noted in the liver bed and this was controlled with the bovie cautery. I then placed some hemostatic powder in the liver bed. Hemostasis was noted in the liver bed, the clips were noted to be in good position on both the cystic duct stump and the cystic artery stump. No other pathology was noted in the right upper quadrant. I then moved the laparoscope to the subxiphoid port. No iatrogenic injury or other pathology was noted in the lower abdomen. I then closed the 12 mm trocar site under direct visualization using the Jerry cone and 0 Vicryl suture. At this point, the abdomen was desufflated and all ports removed. All port sites were then closed with 4.O Monocryl subcuticular sutures. Dermabond was placed on each incision. The patient tolerated the procedure well, was extubated in the operating room postoperative and will be transferred to the recovery room in stable condition Estimated Blood Loss 100 Urine Output 300 Drains No Packing No Pathology Yes Complications No immediate complications Condition Stable Disposition PACU [facility] Billing Surgery - Charge Forward: Surgery Billing
[2021-10-30 10:03] LABS: Glucose Point of Care 203 mg/dl (65-105)
[2021-10-30] MEDS: fentaNYL CITRATE INJ (*CRX) 100 MCG/2 ML VIAL 25 MCG IV PUSH ×4 (10:21→10:54)
--- NOTE | 2021-10-30 11:34 | PC.NURSE ---
1125-Back from surgery.
[2021-10-30] MEDS: INSULIN HUMAN REGULAR (*BKC) 100 UNITS/ML SUB-Q ×3 (12:24→23:51)
[2021-10-30 12:33] LABS: Glucose Point of Care 277 mg/dl (65-105)
--- NOTE | 2021-10-30 15:54 | PM.IMPN ---
Progress Note: A&P Assessment and Plan (1) Cholelithiasis and acute cholecystitis without obstruction: Code(s): K80.00 - Calculus of gallbladder with acute cholecystitis without obstruction Status: Acute Assessment and Plan: S/p laparoscopic cholecystectomy. Management per General Surgery. (2) Acute dehydration: Code(s): E86.0 - Dehydration Status: Acute Assessment and Plan: - definitive etiology unknown. - Continue IVF of NS at 125 ml/hr - NPO - She does history of type 1 diabetes mellitus, continue to monitor for acidosis. - Recheck beta hydroxybutyrate and CMP at 6:00 p.m. today. - Calculated anion gap is 18. ( Normal is 3-10.) - Not acidotic according to normal pH. - Continue to monitor labs and vitals. -10/30/21 This has resolved. (3) T1DM (type 1 diabetes mellitus): Qualifiers: Diabetes mellitus complication status: with hyperglycemia Qualified Code(s): E10.65 - Type 1 diabetes mellitus with hyperglycemia Code(s): E10.9 - Type 1 diabetes mellitus without complications Status: Acute Assessment and Plan: - Not acidotic as noted per ABG in ER. - Continue to monitor for metabolic acidosis. - Timed beta hydroxybutyrate and CMP scheduled for 1800 this evening. - Currently NPO secondary to acute dehydration. - continue insulin pump, protocol is ordered With settings. - Hypoglycemic protocol - glucose checks every 6 hours while NPO, then changed to a.c. and HS Once patient is tolerating oral intake - pump settings as follows: Basal rate of 1.2 units/hour, insulin to carb ratio is 1 unit: 7 g of carbs, target of 100 glucose, correction factor of 1 unit for every 40 dL of glucose over 120 dL. - Continue to monitor labs and VS. - A1C = 5.9 (4) Hyperbilirubinemia: Code(s): E80.6 - Other disorders of bilirubin metabolism Status: Acute Assessment and Plan: - 5.2 Total Bilirubin - Check indirect and direct - Suspicion that it is chronic in nature, given pt's known history of being told that his liver is Cirrhotic, and he has had an elevated T-Bili here in the past on other visits. However, he denies ever knowing that he had an elevated Bilirubin. His Imaging here today from ER indicate possible Gall Bladder involvement as well. - Consult GI for Hyperbilirubinemia and Ulcerative Colitis, and Consult Gen Sgy for Cholelithiasis in setting of Hyperbilirubinemia. (5) Suicidal ideations: Code(s): R45.851 - Suicidal ideations Status: Acute Assessment and Plan: - Pt. with remote history of Suicidal ideations, and does admit that he often thinks about it, but denies any SI at this present time. - Suicide precautions ordered. -10/30/21 discussed with patient that he will be in ICU for the remainder of his stay as he was admitted with suicide precautions. (6) Ulcerative colitis: Code(s): K51.90 - Ulcerative colitis, unspecified, without complications Status: Acute Assessment and Plan: - History of, see above plan of care (7) Cirrhosis: Code(s): K74.60 - Unspecified cirrhosis of liver Status: Acute Assessment and Plan: - History of, see above plan of care. Plan Stable Subjective Date/time seen: 10/30/21 01:54 Patient seen and examined [facility] Patient reports significant abdominal pain. Discussed with the patient the importance of taking deep breathings to help keep his lungs open. Review of Systems Gastrointestinal: Gastrointestinal: Denies abdominal pain Exam Narrative: GENERAL: NAD, cooperative HEENT: Normocephalic, atraumatic, anicteric, nares clear, oropharynx moist and clear, dentition ok NECK: Supple CV: Normal S1, S2, RRR, No MRG RESP: CTAB, Normal work of breathing. Abdomen: Soft, non-distended EXTREMITIES: Warm and well perfused, no clubbing, cyanosis, or edema SKIN: warm, dry and i
[2021-10-30 18:10] LABS: Glucose Point of Care 258 mg/dl (65-105)
[2021-10-30] MEDS: INSULIN GLARGINE (*BKC) 100 UNITS/ML 20 UNITS SUB-Q (20:08)
[2021-10-30 20:13] LABS: Glucose Point of Care 318 mg/dl (65-105)
[2021-10-31 00:03] LABS: Glucose Point of Care 283 mg/dl (65-105)
[2021-10-31] MEDS: SODIUM CHLORIDE 0.9% IV 1,000 ML 125 ML IV CONT (03:59)
[2021-10-31 04:00] VITALS: BP 156/100; PULSE 100; RESP 20; TEMP 37.1; O2SAT 94
[2021-10-31] MEDS: MORPHINE SULFATE (*CRX) 4 MG/ML INJ IV PUSH ×2 (04:04→07:58)
[2021-10-31] MEDS: INSULIN HUMAN REGULAR (*BKC) 100 UNITS/ML SUB-Q (06:03)
[2021-10-31 06:07] LABS: Glucose Point of Care 220 mg/dl (65-105)
[2021-10-31 08:00] VITALS: BP 166/105; PULSE 96; RESP 16; TEMP 37.1; O2SAT 94
[2021-10-31 08:15] LABS: Glucose Point of Care 191 mg/dl (65-105)
--- NOTE | 2021-10-31 08:49 | PM.IMPN ---
Progress Note: A&P Assessment and Plan (1) Cholelithiasis and acute cholecystitis without obstruction: Code(s): K80.00 - Calculus of gallbladder with acute cholecystitis without obstruction Status: Acute Assessment and Plan: S/p laparoscopic cholecystectomy. Management per General Surgery. (2) Acute dehydration: Code(s): E86.0 - Dehydration Status: Acute Assessment and Plan: - definitive etiology unknown. - Continue IVF of NS at 125 ml/hr - NPO - She does history of type 1 diabetes mellitus, continue to monitor for acidosis. - Recheck beta hydroxybutyrate and CMP at 6:00 p.m. today. - Calculated anion gap is 18. ( Normal is 3-10.) - Not acidotic according to normal pH. - Continue to monitor labs and vitals. -10/30/21 This has resolved. (3) T1DM (type 1 diabetes mellitus): Qualifiers: Diabetes mellitus complication status: with hyperglycemia Qualified Code(s): E10.65 - Type 1 diabetes mellitus with hyperglycemia Code(s): E10.9 - Type 1 diabetes mellitus without complications Status: Acute Assessment and Plan: - Not acidotic as noted per ABG in ER. - Continue to monitor for metabolic acidosis. - Timed beta hydroxybutyrate and CMP scheduled for 1800 this evening. - Currently NPO secondary to acute dehydration. - continue insulin pump, protocol is ordered With settings. - Hypoglycemic protocol - glucose checks every 6 hours while NPO, then changed to a.c. and HS Once patient is tolerating oral intake - pump settings as follows: Basal rate of 1.2 units/hour, insulin to carb ratio is 1 unit: 7 g of carbs, target of 100 glucose, correction factor of 1 unit for every 40 dL of glucose over 120 dL. - Continue to monitor labs and VS. - A1C = 5.9 -10/31/21 having hyperglycemia. Asked nurse to give insulin regular 10 units x 1 (4) Hyperbilirubinemia: Code(s): E80.6 - Other disorders of bilirubin metabolism Status: Acute Assessment and Plan: - 5.2 Total Bilirubin - Check indirect and direct - Suspicion that it is chronic in nature, given pt's known history of being told that his liver is Cirrhotic, and he has had an elevated T-Bili here in the past on other visits. However, he denies ever knowing that he had an elevated Bilirubin. His Imaging here today from ER indicate possible Gall Bladder involvement as well. - Consult GI for Hyperbilirubinemia and Ulcerative Colitis, and Consult Gen Sgy for Cholelithiasis in setting of Hyperbilirubinemia. -Appreciate recommendations from GI (5) Suicidal ideations: Code(s): R45.851 - Suicidal ideations Status: Acute Assessment and Plan: - Pt. with remote history of Suicidal ideations, and does admit that he often thinks about it, but denies any SI at this present time. - Suicide precautions ordered. -10/30/21 discussed with patient that he will be in ICU for the remainder of his stay as he was admitted with suicide precautions. (6) Ulcerative colitis: Code(s): K51.90 - Ulcerative colitis, unspecified, without complications Status: Acute Assessment and Plan: - History of, see above plan of care (7) Cirrhosis: Code(s): K74.60 - Unspecified cirrhosis of liver Status: Acute Assessment and Plan: - History of, see above plan of care. Discussed with patient the need to avoid high dose tylenol with his liver condition. Patient reported being unaware that he should not take higher than advised doses of tylenol. Plan Stable Additional Plan Subjective Date/time seen: 10/31/21 08:49 Patient reports uncontrolled pain. Denies chronic use of pain medication at home but says he always requires a higher dose than most when using pain medication. Denies nausea with eating. Reporting significant abdominal pain. Denies shoulder pain. Review of Systems Gastrointestinal: Gastrointestinal: Re
--- NOTE | 2021-10-31 09:37 | PM.PNGS ---
Progress Note: A&P Assessment and Plan (1) Cholelithiasis and acute cholecystitis without obstruction: Code(s): K80.00 - Calculus of gallbladder with acute cholecystitis without obstruction Status: Acute Assessment and Plan: Postop day 1 and he is still requiring IV morphine for pain control. Tolerating a diabetic diet. Will add Rudolph to try transitioning to oral analgesics. Likely related to gas pains from surgery yesterday. Encouraged increasing activity and walking the halls. Labs are pending this morning. Hemodynamically stable. (2) Nausea and vomiting: Code(s): R11.2 - Nausea with vomiting, unspecified Status: Acute (3) Acute dehydration: Code(s): E86.0 - Dehydration Status: Acute (4) T1DM (type 1 diabetes mellitus): Qualifiers: Diabetes mellitus complication status: with hyperglycemia Qualified Code(s): E10.65 - Type 1 diabetes mellitus with hyperglycemia Code(s): E10.9 - Type 1 diabetes mellitus without complications Status: Acute (5) Hyperbilirubinemia: Code(s): E80.6 - Other disorders of bilirubin metabolism Status: Acute (6) Cirrhosis: Code(s): K74.60 - Unspecified cirrhosis of liver Status: Acute (7) Ulcerative colitis: Code(s): K51.90 - Ulcerative colitis, unspecified, without complications Status: Acute Plan I have discussed the patient's case and plan of care with Dr. Rodas. Subjective Subjective Date/Time Seen: 10/31/21 09:37 Post Op day: 1 (Laparoscopic cholecystectomy) Patient reports: tolerating a regular diet, voiding w/o difficulty, no flatus, no bowel movement and afebrile Interval history: Patient seen and examined. He reports having a lot of generalized abdominal pain. He reports this is aggravated by movement, standing, and deep breathing. Review of Systems Review of Systems: All systems reviewed & are unremarkable except as noted in HPI and below Exam Const: General: no acute distress, awake and uncomfortable Orientation/consciousness: patient oriented x3 Resp: Effort & Inspection: normal respiratory effort Auscultation: clear to auscultation bilaterally Cardio: Rate: regular rate Rhythm: regular rhythm GI: Inspection: other (mildly distended) GI Palp: Yes Soft to palpation, Yes Tenderness to palpation present (GI) (Diffusely tender) and No Rebound tenderness present Auscultation: Hypoactive bowel sounds present Other: Periumbilical incision with scant dry bloody drainage, other incisions all clean and dry with glue intact Skin: General skin exam: normal color Extrem: General: no calf tenderness bilaterally and no edema Psych: Mental Status: mental status grossly normal Objective Data Vital Signs Vital Signs: Vital Signs - 24 hr 10/30/21 10:00 10/30/21 10:15 10/30/21 10:30 Temperature 98.2 F Pulse Rate 113 H 85 79 Respiratory Rate 25 H 21 H 20 Blood Pressure 155/99 H 137/85 136/79 Pulse Oximetry 92 96 100 Oxygen Delivery Simple Face Mask Simple Face Mask Simple Face Mask Oxygen Flow Rate 10 10 8 10/30/21 10:45 10/30/21 11:00 10/30/21 11:15 Temperature Pulse Rate 88 82 94 Respiratory Rate 22 H 18 18 Blood Pressure 145/93 H 140/84 145/92 H Pulse Oximetry 96 100 100 Oxygen Delivery Simple Face Mask Nasal Cannula Nasal Cannula Oxygen Flow Rate 6 2 2 10/30/21 11:35 10/30/21 11:45 10/30/21 12:00 Temperature 98.8 F 98.9 F 99 F Pulse Rate 83 81 80 Respiratory Rate 18 20 20 Blood Pressure 169/104 H 158/97 H 161/100 H Pulse Oximetry 93 94 94 Oxygen Delivery Oxygen Flow Rate 10/30/21 12:15 10/30/21 13:56 10/30/21 16:00 Temperature 99.1 F 99.3 F 98.8 F Pulse Rate 88 87 93 Respiratory Rate 20 18 18 Blood Pressure 167/101 H 147/93 H 151/90 H Pulse Oximetry 95 96 98 Oxygen Delivery Oxygen Flow Rate 10/30/21 20:00 10/30/21 20:00 10/30/21 23:50 Temperature 99.1 F 100.1 F H Pulse Rate 89 95 Respiratory Rate 20
[2021-10-31 09:38] LABS: Basophils Percent Auto 0.4 % (0.2-1.2); Eosinophils Absolute Auto 0.1 K/mm3 (0-0.3); Eosinophils Percent Auto 1.5 % (0-4.4); Hematocrit 35.7 % (42.0-52.0); Hemoglobin 12.4 g/dL (14.0-18.0); Immature Granulocyte Absolute 0.03 K/mm3 (0.00-0.031); Immature Granulocyte Percent A 0.4 % (0-0.5); Lymphocytes Absolute Auto 0.97 K/mm3 (0.9-3.2); Lymphocytes Percent Auto 14.2 % (18.3-44.2); Mean Corpuscular HGB Conc 34.7 g/dl (32-36); Mean Corpuscular Hemoglobin 29.8 pg (26-34); Mean Corpuscular Volume 85.8 fl (80-100); Mean Platelet Volume 10.6 fl (7.4-10.4); Monocytes Absolute Auto 0.6 K/mm3 (0.1-0.6); Monocytes Percent Auto 8.7 % (2.6-8.5); Neutrophils Absolute Auto 5.1 K/mm3 (1.3-6.7); Neutrophils Percent Auto 74.8 % (45.5-73.1); Platelet Count Result 133 k/mm3 (150-375); Red Blood Count 4.16 M/mm3 (4.6-6.20); Red Cell Distribution Width 12.8 % (11.5-14.5); White Blood Count 6.8 K/mm3 (4.5-10.0)
[2021-10-31 09:48] LABS: Anion Gap 10 mmol/L (8-16); Blood Urea Nitrogen 7 mg/dL (9-20); Calcium 8.3 mg/dL (8.4-10.2); Carbon Dioxide 25 mmol/L (22-30); Chloride 103 mmol/L (98-107); Estimated CRCL calculation 144 ml/min; Estimated Glomerular Filt Rate > 60; Glucose 195 mg/dL (65-110); Potassium 3.2 mmol/L (3.4-5.0); Sodium 138 mmol/L (137-145)
--- NOTE | 2021-10-31 10:08 | PC.NURSE ---
Patient currently asleep. No s/s of pain or distress
[2021-10-31] MEDS: POTASSIUM CHLORIDE 20 MEQ PACKET (FOR LIQUID) 40 MEQ PO (10:33)
[2021-10-31 11:59] LABS: Glucose Point of Care 344 mg/dl (65-105)
[2021-10-31] MEDS: INSULIN HUMAN REGULAR (*BKC) 100 UNITS/ML 10 UNITS SUB-Q (12:07)
[2021-10-31] MEDS: ONDANSETRON INJ 4 MG/2 ML VIAL IV PUSH (12:10)
[2021-10-31] MEDS: HYDROcodone/acetaminophen (*CRX) 10-325 MG TABLET 1 TAB PO (12:35)
--- NOTE | 2021-10-31 13:55 | WPDANESPN ---
Anes - Prog Note Post-Op Date/Time: 10/31/21 13:55 Vital Signs: Last Vital Signs Temp 37.1 C 10/31/21 08:00 Pulse 96 10/31/21 08:00 Resp 16 10/31/21 08:00 BP 166/105 H 10/31/21 08:00 Pulse Ox 94 10/31/21 08:00 O2 Del Method Room Air 10/31/21 08:00 O2 Flow Rate 2 10/30/21 11:15 Pain Score (VAS): *patient asleep, spoke with RN, pain medications switched to PO, patient resting comfortably I/O: Intake & Output 10/30/21 10/31/21 10/31/21 23:59 07:59 15:59 Intake Total 2160 1550 480 Output Total 1000 Balance 1160 1550 480 Laboratory Tests 10/31/21 09:12 10/31/21 09:12 10/30/21 10/30/21 10/30/21 18:03 20:11 23:48 WBC RBC Hgb Hct MCV MCH MCHC RDW Plt Count MPV Immature Gran % (Auto) Neut % (Auto) Lymph % (Auto) Wake % (Auto) Eos % (Auto) Baso % (Auto) Lymph # (Auto) Wake # (Auto) Eos # (Auto) Baso # (Auto) Abs Immat Gran (auto) Absolute Neuts (auto) Absolute Nucleated RBC Nucleated RBC % % Immature Plt Fraction Sodium Potassium Chloride Carbon Dioxide Anion Gap BUN Creatinine Estim Creat Clear Calc Estimated GFR Glucose POC Capillary Glucose 258 H 318 H 283 H Calcium 10/31/21 10/31/21 10/31/21 06:02 08:11 09:12 WBC 6.8 RBC 4.16 L Hgb 12.4 L Hct 35.7 L MCV 85.8 MCH 29.8 MCHC 34.7 RDW 12.8 Plt Count 133 L MPV 10.6 H Immature Gran % (Auto) 0.4 Neut % (Auto) 74.8 H Lymph % (Auto) 14.2 L Wake % (Auto) 8.7 H Eos % (Auto) 1.5 Baso % (Auto) 0.4 Lymph # (Auto) 0.97 Wake # (Auto) 0.6 Eos # (Auto) 0.1 Baso # (Auto) 0.0 Abs Immat Gran (auto) 0.03 Absolute Neuts (auto) 5.1 Absolute Nucleated RBC 0.0 Nucleated RBC % 0.0 % Immature Plt Fraction 4.0 Sodium Potassium Chloride Carbon Dioxide Anion Gap BUN Creatinine Estim Creat Clear Calc Estimated GFR Glucose POC Capillary Glucose 220 H 191 H Calcium 10/31/21 10/31/21 09:12 11:55 WBC RBC Hgb Hct MCV MCH MCHC RDW Plt Count MPV Immature Gran % (Auto) Neut % (Auto) Lymph % (Auto) Wake % (Auto) Eos % (Auto) Baso % (Auto) Lymph # (Auto) Wake # (Auto) Eos # (Auto) Baso # (Auto) Abs Immat Gran (auto) Absolute Neuts (auto) Absolute Nucleated RBC Nucleated RBC % % Immature Plt Fraction Sodium 138 Potassium 3.2 L Chloride 103 Carbon Dioxide 25 Anion Gap 10 BUN 7 L Creatinine 0.70 Estim Creat Clear Calc 144 Estimated GFR > 60 Glucose 195 H POC Capillary Glucose 344 H Calcium 8.3 L Patient Feedback: Patient satisfied with anesthetic care.
--- NOTE | 2021-10-31 14:04 | PC.NURSE ---
Updated patient's mother on plan of care.
[2021-10-31 16:00] VITALS: BP 145/103; PULSE 106; RESP 13; TEMP 37.4; O2SAT 94
[2021-10-31] MEDS: HYDROcodone/acetaminophen (*CRX) 5-325 MG TABLET 1 TAB PO (19:18)
[2021-10-31] MEDS: INSULIN GLARGINE (*BKC) 100 UNITS/ML 20 UNITS SUB-Q (20:45)
[2021-10-31] MEDS: INSULIN ASPART (*BKC) 100 UNITS/ML 10 UNITS SUB-Q (21:06)
[2021-10-31 21:50] LABS: Glucose Point of Care 401 mg/dl (65-105)
[2021-10-31 23:15] LABS: Glucose Point of Care 295 mg/dl (65-105)
[2021-11-01] VITALS: BP 153/100; PULSE 93; RESP 20; TEMP 36.9; O2SAT 95
[2021-11-01] MEDS: HYDROcodone/acetaminophen (*CRX) 5-325 MG TABLET 1 TAB PO ×2 (00:22→11:22)
[2021-11-01 04:40] LABS: Basophils Percent Auto 0.5 % (0.2-1.2); Eosinophils Absolute Auto 0.2 K/mm3 (0-0.3); Eosinophils Percent Auto 2.4 % (0-4.4); Hematocrit 33.6 % (42.0-52.0); Hemoglobin 11.6 g/dL (14.0-18.0); Immature Granulocyte Absolute 0.04 K/mm3 (0.00-0.031); Immature Granulocyte Percent A 0.6 % (0-0.5); Lymphocytes Absolute Auto 1.13 K/mm3 (0.9-3.2); Lymphocytes Percent Auto 18.1 % (18.3-44.2); Mean Corpuscular HGB Conc 34.5 g/dl (32-36); Mean Corpuscular Hemoglobin 29.7 pg (26-34); Mean Corpuscular Volume 86.2 fl (80-100); Mean Platelet Volume 10.8 fl (7.4-10.4); Monocytes Absolute Auto 0.6 K/mm3 (0.1-0.6); Monocytes Percent Auto 10.3 % (2.6-8.5); Neutrophils Absolute Auto 4.3 K/mm3 (1.3-6.7); Neutrophils Percent Auto 68.1 % (45.5-73.1); Platelet Count Result 116 k/mm3 (150-375); Red Cell Distribution Width 12.6 % (11.5-14.5); White Blood Count 6.2 K/mm3 (4.5-10.0)
[2021-11-01 04:53] LABS: Anion Gap 10 mmol/L (8-16); Blood Urea Nitrogen 7 mg/dL (9-20); Calcium 8.5 mg/dL (8.4-10.2); Carbon Dioxide 27 mmol/L (22-30); Chloride 98 mmol/L (98-107); Estimated CRCL calculation 127 ml/min; Estimated Glomerular Filt Rate > 60; Glucose 255 mg/dL (65-110); Potassium 3.8 mmol/L (3.4-5.0); Sodium 135 mmol/L (137-145)
[2021-11-01 08:00] VITALS: BP 154/97; PULSE 85; RESP 12; TEMP 37.2; O2SAT 96
--- NOTE | 2021-11-01 08:09 | PM.IMPN ---
Subjective Date/time seen: 11/01/21 08:09 Objective Data Vital Signs Vital Signs: Vital Signs - 24 hr 10/31/21 16:00 10/31/21 19:31 11/01/21 00:00 Temperature 99.3 F 98.5 F Pulse Rate 106 H 93 Respiratory Rate 13 20 Blood Pressure 145/103 H 153/100 H Pulse Oximetry 94 95 Oxygen Delivery Room Air Intake/Output Intake/Output: Intake & Output 10/29/21 10/30/21 10/31/21 11/01/21 23:59 23:59 23:59 23:59 Intake Total 4500 6160 4470 240 Output Total 1600 Balance 4500 4560 4470 240 Meds/Results Medications: Active Medications Generic Name Dose Route Start Last Admin Trade Name Freq PRN Reason Stop Dose Admin Acetaminophen 650 mg 10/28/21 19:39 10/29/21 23:33 Acetaminophen 325 Mg Tablet PO 650 mg Q6H PRN Administration Mild Pain (1-3) or Fever Acetaminophen/Aspirin/Caffeine 1 tablet 10/28/21 21:50 10/30/21 06:21 Acetaminophen/Aspirin/Caffeine 250-250-65 Mg Tablet PO 1 tablet Q6H PRN Administration Pain Rated 1-3 Hydrocodone Bitart/Acetaminophen 1 tab 10/31/21 09:39 11/01/21 00:22 Hydrocodone/Acetaminophen (*Crx) 5-325 Mg Tablet PO 1 tab Q4H PRN Administration Pain Rated 4-6 Hydrocodone Bitart/Acetaminophen 1 tab 10/31/21 09:39 10/31/21 12:35 Hydrocodone/Acetaminophen (*Crx) 10-325 Mg Tablet PO 1 tab Q6H PRN Administration Pain Rated 7-10 Dextrose 12.5 gm 10/27/21 15:24 Dextrose 50% 25 Gm/50 Ml Syringe IV PUSH PRN PRN Hypoglycemia Protocol Glucagon 1 mg 10/27/21 15:24 Glucagon For Inj 1 Mg Vial IM PRN PRN Hypoglycemia Protocol Glucose 15 gm 10/27/21 15:24 Glucose Oral Gel 15 Gm Of Glucse In 37.5 Gm Tube PO PRN PRN Hypoglycemia Protocol Heparin Sodium (Porcine) 5,000 units 10/29/21 09:00 10/29/21 20:41 Heparin Sodium 5,000 Units/Ml Vial SUB-Q 5,000 units Q12HR MEGHAN Administration Dextrose 1,000 mls @ 100 mls/hr 10/27/21 15:24 Dextrose 5% 1,000 Ml IVPB PRN PRN Hypoglycemia Protocol Ibuprofen 800 mg 10/29/21 17:27 10/30/21 13:50 Ibuprofen 400 Mg Tablet PO 800 mg TID PRN Administration Pain Rated 4-6 Insulin Glargine 20 units 10/27/21 21:00 10/31/21 20:45 Insulin Glargine (*Bkc) 100 Units/Ml SUB-Q 20 units HS MEGHAN Administration Insulin Human Regular 1 - 6 units 10/31/21 11:30 10/31/21 21:11 Insulin Human Regular (*Bkc) 100 Units/Ml SUB-Q Not Given ACHS MEGHAN Protocol Morphine Sulfate 4 mg 10/27/21 15:50 10/31/21 07:58 Morphine Sulfate (*Crx) 4 Mg/Ml Inj IV PUSH 4 mg Q4H PRN Administration Pain Rated 7-10 Ondansetron HCl 4 mg 10/27/21 15:50 10/31/21 12:10 Ondansetron Inj 4 Mg/2 Ml Vial IV PUSH 4 mg Q4H PRN Administration Nausea And Vomiting Radiology Results: ITS Impressions Abdomen/Pelvis CT 10/27/21 12:07 IMPRESSION: Gallbladder wall thickening and minimal pericholecystic fluid; consider acute cholecystitis. Consider gallbladder ultrasound examination and possibly radionuclide hepatobiliary scan as clinically appropriate Normal appendix Abdomen Ultrasound 10/27/21 13:22 IMPRESSION: 1. Cholelithiasis. No specific evidence of acute cholecystitis. 2. Cirrhosis of the liver. Labs Labs: Laboratory Results - last 24 hr 10/31/21 10/31/21 10/31/21 08:11 09:12 09:12 WBC 6.8 RBC 4.16 L Hgb 12.4 L Hct 35.7 L MCV 85.8 MCH 29.8 MCHC 34.7 RDW 12.8 Plt Count 133 L MPV 10.6 H Immature Gran % (Auto) 0.4 Neut % (Auto) 74.8 H Lymph % (Auto) 14.2 L Sharp % (Auto) 8.7 H Eos % (Auto) 1.5 Baso % (Auto) 0.4 Lymph # (Auto) 0.97 Sharp # (Auto) 0.6 Eos # (Auto) 0.1 Baso # (Auto) 0.0 Abs Immat Gran (auto) 0.03 Absolute Neuts (auto) 5.1 Absolute Nucleated RBC 0.0 Nucleated RBC % 0.0 % Immature Plt Fraction 4.0 Sodium 138 Potassium 3.2 L Chloride 103 Carbon
[2021-11-01] MEDS: INSULIN HUMAN REGULAR (*BKC) 100 UNITS/ML SUB-Q ×2 (09:07→12:42)
[2021-11-01 09:12] LABS: Glucose Point of Care 273 mg/dl (65-105)
--- NOTE | 2021-11-01 09:42 | PM.PNGS ---
Progress Note: A&P Assessment and Plan (1) Cholelithiasis and acute cholecystitis without obstruction: Code(s): K80.00 - Calculus of gallbladder with acute cholecystitis without obstruction Status: Acute Assessment and Plan: POD#2 and pain is much better controlled. Only on oral analgesics. Tolerating a regular diet. Okay to discharge the patient from our standpoint. F/u in [address] Rodas. (2) Acute dehydration: Code(s): E86.0 - Dehydration Status: Acute (3) T1DM (type 1 diabetes mellitus): Qualifiers: Diabetes mellitus complication status: with hyperglycemia Qualified Code(s): E10.65 - Type 1 diabetes mellitus with hyperglycemia Code(s): E10.9 - Type 1 diabetes mellitus without complications Status: Acute (4) Hyperbilirubinemia: Code(s): E80.6 - Other disorders of bilirubin metabolism Status: Acute (5) Cirrhosis: Code(s): K74.60 - Unspecified cirrhosis of liver Status: Acute (6) Ulcerative colitis: Code(s): K51.90 - Ulcerative colitis, unspecified, without complications Status: Acute Plan I have discussed the patient's case and plan of care with Dr. Rodas. Subjective Subjective Date/Time Seen: 11/01/21 09:42 Post Op day: 2 ( Laparoscopic cholecystectomy) Patient reports: no new complaints, feels better, pain is less, tolerating a regular diet, voiding w/o difficulty, flatus, no bowel movement and afebrile Interval history: Patient feeling much better today. He reports his abdominal pain is much better controlled and currently only taking oral analgesics. He has not had IV Dilaudid since yesterday morning. Tolerating his diet. Walking in the room and tolerates this well. Review of Systems Review of Systems: All systems reviewed & are unremarkable except as noted in HPI and below Exam Const: General: awake; No acute distress Orientation/consciousness: patient oriented x3 GI: Inspection: non-distended and incision (incisions dry and intact, no drainage today) GI Palp: Yes Soft to palpation, Yes Tenderness to palpation present (GI) (incisional) and No Guarding due to palpation present (GI) Auscultation: normal bowel sounds Extrem: General: no calf tenderness bilaterally and no edema Objective Data Vital Signs Vital Signs: Vital Signs - 24 hr 10/31/21 16:00 10/31/21 19:31 11/01/21 00:00 Temperature 99.3 F 98.5 F Pulse Rate 106 H 93 Respiratory Rate 13 20 Blood Pressure 145/103 H 153/100 H Pulse Oximetry 94 95 Oxygen Delivery Room Air 11/01/21 08:00 11/01/21 08:00 Temperature 98.9 F Pulse Rate 85 Respiratory Rate 12 Blood Pressure 154/97 H Pulse Oximetry 96 96 Oxygen Delivery Room Air Intake/Output Intake/Output: Intake & Output 10/29/21 10/30/21 10/31/21 11/01/21 23:59 23:59 23:59 23:59 Intake Total 4500 6160 4470 240 Output Total 1600 Balance 4500 4560 4470 240 Meds/Results Medications: Active Medications Generic Name Dose Route Start Last Admin Trade Name Freq PRN Reason Stop Dose Admin Acetaminophen 650 mg 10/28/21 19:39 10/29/21 23:33 Acetaminophen 325 Mg Tablet PO 650 mg Q6H PRN Administration Mild Pain (1-3) or Fever Acetaminophen/Aspirin/Caffeine 1 tablet 10/28/21 21:50 10/30/21 06:21 Acetaminophen/Aspirin/Caffeine 250-250-65 Mg Tablet PO 1 tablet Q6H PRN Administration Pain Rated 1-3 Hydrocodone Bitart/Acetaminophen 1 tab 10/31/21 09:39 11/01/21 00:22 Hydrocodone/Acetaminophen (*Crx) 5-325 Mg Tablet PO 1 tab Q4H PRN Administration Pain Rated 4-6 Hydrocodone Bitart/Acetaminophen 1 tab 10/31/21 09:39 10/31/21 12:35 Hydrocodone/Acetaminophen (*Crx) 10-325 Mg Tablet PO 1 tab Q6H PRN Administration Pain Rated 7-10 Dextrose 12.5 gm 10/27/21 15:24 Dextrose 50% 25 Gm/50 Ml Syringe IV PUSH PRN PRN Hypoglycemia Protocol Glucagon 1 mg 10/27/21 15:24 Glucagon
--- NOTE | 2021-11-01 11:30 | PC.NURSE ---
Crisis team from [facility] at bedside.
[2021-11-01 12:09] LABS: Glucose Point of Care 320 mg/dl (65-105)
[2021-11-01 12:25] VITALS: BMI 27.8
--- NOTE | 2021-11-01 13:00 | PM.DS ---
DS: Admitting Diagnosis Discharge Date 11/01/21 Admitting Diagnosis Glucose greater than 350 DS: Discharge Diagnosis Discharge Diagnosis (1) Cholelithiasis and acute cholecystitis without obstruction: Code(s): K80.00 - Calculus of gallbladder with acute cholecystitis without obstruction Status: Acute Assessment and Plan: S/p laparoscopic cholecystectomy. Management per General Surgery. (2) Acute dehydration: Code(s): E86.0 - Dehydration Status: Acute Assessment and Plan: - definitive etiology unknown. - Continue IVF of NS at 125 ml/hr - NPO - She does history of type 1 diabetes mellitus, continue to monitor for acidosis. - Recheck beta hydroxybutyrate and CMP at 6:00 p.m. today. - Calculated anion gap is 18. ( Normal is 3-10.) - Not acidotic according to normal pH. - Continue to monitor labs and vitals. -10/30/21 This has resolved. (3) T1DM (type 1 diabetes mellitus): Qualifiers: Diabetes mellitus complication status: with hyperglycemia Qualified Code(s): E10.65 - Type 1 diabetes mellitus with hyperglycemia Code(s): E10.9 - Type 1 diabetes mellitus without complications Status: Acute Assessment and Plan: - Not acidotic as noted per ABG in ER. - Continue to monitor for metabolic acidosis. - Timed beta hydroxybutyrate and CMP scheduled for 1800 this evening. - Currently NPO secondary to acute dehydration. - continue insulin pump, protocol is ordered With settings. - Hypoglycemic protocol - glucose checks every 6 hours while NPO, then changed to a.c. and HS Once patient is tolerating oral intake - pump settings as follows: Basal rate of 1.2 units/hour, insulin to carb ratio is 1 unit: 7 g of carbs, target of 100 glucose, correction factor of 1 unit for every 40 dL of glucose over 120 dL. - Continue to monitor labs and VS. - A1C = 5.9 -10/31/21 having hyperglycemia. Asked nurse to give insulin regular 10 units x 1 -11/01 hyperglycemia improving. Will discharge to home and has follow up with Endocrinology and PCP. (4) Hyperbilirubinemia: Code(s): E80.6 - Other disorders of bilirubin metabolism Status: Acute Assessment and Plan: - 5.2 Total Bilirubin - Check indirect and direct - Suspicion that it is chronic in nature, given pt's known history of being told that his liver is Cirrhotic, and he has had an elevated T-Bili here in the past on other visits. However, he denies ever knowing that he had an elevated Bilirubin. His Imaging here today from ER indicate possible Gall Bladder involvement as well. - Consult GI for Hyperbilirubinemia and Ulcerative Colitis, and Consult Gen Sgy for Cholelithiasis in setting of Hyperbilirubinemia. -Appreciate recommendations from GI (5) Suicidal ideations: Code(s): R45.851 - Suicidal ideations Status: Acute Assessment and Plan: - Pt. with remote history of Suicidal ideations, and does admit that he often thinks about it, but denies any SI at this present time. - Suicide precautions ordered. -10/30/21 discussed with patient that he will be in ICU for the remainder of his stay as he was admitted with suicide precautions. (6) Ulcerative colitis: Code(s): K51.90 - Ulcerative colitis, unspecified, without complications Status: Acute Assessment and Plan: - History of, see above plan of care (7) Cirrhosis: Code(s): K74.60 - Unspecified cirrhosis of liver Status: Acute Assessment and Plan: - History of, see above plan of care. Discussed with patient the need to avoid high dose tylenol with his liver condition. Patient reported being unaware that he should not take higher than advised doses of tylenol. Plan Stable DS: Summary Hospital Course Reason for hospitalization: Cholecystitis Hospital Course: 26M with a past medical history of type 1 diabetes, cirrhosis, ulcerative colitis who
[2021-11-01 13:41] LABS: Ceruloplasmin 24 mg/dL (18-36)
[2021-11-04 18:15] LABS: ANCA Screen Negative (Negative); Myeloperoxidase Ab <1.0 AI (<1.0); Proteinase-3 Ab <1.0 AI (<1.0); S cerevisiae Ab (IgA) 6.6 U (<=20.0); S cerevisiae Ab (IgG) 11.1 U (<=20.0)
== END 2021-11-01 14:40 | disposition home or self-care (01) | DRG 418 ==
LOC: ANHED 12:13 → ANH2MED 14:24 → ANHICU 16:47
PROVIDERS: Internal Medicine; Internal Medicine Gastroenterology; Nurse Practitioner Adult Health; Physician Assistant; Surgery; Admitting Provider Family Medicine; Emergency Provider General Practice; PCP Family Medicine; Visit Provider Family Medicine
PROC: 0FT44ZZ Resection of Gallbladder, Percutaneous Endoscopic Approach (ICD-10-PCS; CPT 47562; principal; 2021-10-30 09:00)
DX: K80.00 Calculus of gallbladder with acute cholecystitis without obstruction (principal); E87.2 Acidosis; R45.851 Suicidal ideations; E86.0 Dehydration; E10.65 Type 1 diabetes mellitus with hyperglycemia; E80.6 Other disorders of bilirubin metabolism; K74.60 Unspecified cirrhosis of liver; Z20.822 Contact with and (suspected) exposure to COVID-19; Z87.891 Personal history of nicotine dependence; Z87.19 Personal history of other diseases of the digestive system
CPT/HCPCS: 36415; 36600; 74177; 76705; 80048; 80053; 80074; 81001; 82010; 82140; 82248; 82375; 82390; 82728; 82805; 82948; 83036; 83050; 83690; 83735; 84100; 84443; 85025; 85027; 85055; 85610; 85730; 86036; 86671; 86850; 86900; 86901; 88304; 96361; 96372; 96374; 96375; 96376; 99285; A9270; C9803; G0378; J0690; J1100; J1644; J1815; J1885; J2250; J2270; J2405; J2704; J2710; J3010; J7030; J7120; Q9967; U0003; U0005

== ENCOUNTER 2021-11-03 13:51 | Inpatient (IN) | payer OTHER, SELFPAY ==
[2021-11-03] VITALS (11 sets, daily range): BP systolic 133–154; BP diastolic 87–105; PULSE 81–96; RESP 16–20; TEMP 36.2–36.6; O2SAT 97–99; BMI 27.2
--- NOTE | ~2021-11-03 | NM_ITS ---
HEPATOBILIARY SCAN Procedure: Hepatobiliary scan performed following IV administration 5.2 mCi Tc 99m Choletec. Delayed images were performed. Indication:Right upper quadrant pain. Possible bile leak. Comparison: None Findings: There is normal radiotracer uptake in the liver parenchyma with prompt excretion into the b iliary tract. There is normal excretion of radiotracer into the bile ducts and small bowel. No eviden ce for bile extravasation or abnormal accumulation of radiotracer. Impression: 1: Unremarkable hepatobiliary scan without evidence for bile leak. Reviewed, dictated and finalized at location A. Impression: 1: Unremarkable hepatobiliary scan without evidence for bile leak.
--- NOTE | ~2021-11-03 | CT_ITS ---
EXAMINATION: CT abdomen pelvis w con INDICATION: Right upper quadrant pain TECHNIQUE: Computed tomographic images of the abdomen and pelvis were obtained after the administrati on of 100 cc of Omnipaque 300 intravenous contrast. The dose-length product (DLP) was 441.70 mGy-cm. Automated exposure control and iterative reconstruction technique were employed. COMPARISON: 10/27/2021 FINDINGS: There are small pleural effusions. There is mild atelectasis of the lung bases. The heart s ize is normal. There are changes of interval cholecystectomy. There is fat stranding and trace fluid in the gallbladder fossa, consistent with recent surgery. Punctate calcification of the liver likely reflects old granulomatous disease. The spleen, pancreas, and adrenal glands are normal. The kidneys are unremarkable. There is inflammatory change at the umbilicus, likely related to recent surgery. IMPRESSION: 1. Fat stranding and trace fluid in the gallbladder fossa, consistent with recent surgery. 2. Inflammatory change at the umbilicus, also consistent with recent surgery. Reviewed, dictated and finalized at location L. IMPRESSION: 1. Fat stranding and trace fluid in the gallbladder fossa, consistent with rece nt surgery. 2. Inflammatory change at the umbilicus, also consistent with recent surgery.
[2021-11-03 14:30] LABS: Appearance Urine Clear (Clear); Bilirubin Urine 2+ (Negative); Color Urine Yellow (Yellow); Glucose Urine UA 2+ mg/dL (Negative); Ketones Urine 4+ mg/dL (Negative); Leukocyte Esterase Ur Negative LEU/UL (Negative); Nitrate Urine Negative (Negative); Protein Urine 1+ mg/dL (Negative); Specific Grav Ur >= 1.030 (1.001-1.035); pH Urine 5.5 (5.0-9.0)
[2021-11-03 14:38] LABS: Basophils Absolute Auto 0.1 K/mm3 (0.0-0.1); Basophils Percent Auto 0.8 % (0.2-1.2); Eosinophils Absolute Auto 0.1 K/mm3 (0-0.3); Eosinophils Percent Auto 1.9 % (0-4.4); Hematocrit 37.4 % (42.0-52.0); Hemoglobin 13.1 g/dL (14.0-18.0); Immature Granulocyte Absolute 0.05 K/mm3 (0.00-0.031); Immature Granulocyte Percent A 0.8 % (0-0.5); Lymphocytes Absolute Auto 1.15 K/mm3 (0.9-3.2); Lymphocytes Percent Auto 18.1 % (18.3-44.2); Mean Corpuscular Hemoglobin 29.6 pg (26-34); Mean Corpuscular Volume 84.6 fl (80-100); Mean Platelet Volume 10.2 fl (7.4-10.4); Monocytes Absolute Auto 0.4 K/mm3 (0.1-0.6); Monocytes Percent Auto 6.9 % (2.6-8.5); Neutrophils Absolute Auto 4.5 K/mm3 (1.3-6.7); Neutrophils Percent Auto 71.5 % (45.5-73.1); Platelet Count Result 213 k/mm3 (150-375); Red Blood Count 4.42 M/mm3 (4.6-6.20); Red Cell Distribution Width 12.6 % (11.5-14.5); White Blood Count 6.4 K/mm3 (4.5-10.0)
[2021-11-03 14:42] LABS: Mucus Urine Few /lpf; Squamous Epithelial Cell Urine Rare /hpf (Few); WBC Urine 0-3 /hpf
[2021-11-03 14:46] LABS: Add Urine Microscopic? YES; Blood Urine Trace-Intact (Negative)
[2021-11-03] MEDS: MORPHINE SULFATE (*CRX) 4 MG/ML INJ IV PUSH ×4 (14:47→20:48)
[2021-11-03 14:49] LABS: Alanine Aminotransferase 21 U/L (6-50); Alkaline Phosphatase 118 U/L (38-126); Anion Gap 13 mmol/L (8-16); Aspartate Amino Transferase 26 U/L (17-59); Bilirubin,Total 1.4 mg/dL (0.2-1.3); Blood Urea Nitrogen 14 mg/dL (9-20); Carbon Dioxide 25 mmol/L (22-30); Chloride 100 mmol/L (98-107); Estimated CRCL calculation 144 ml/min; Estimated Glomerular Filt Rate > 60; Glucose 273 mg/dL (65-110); Lipase 36 U/L (23-300); Sodium 138 mmol/L (137-145)
[2021-11-03 16:28] LABS: SARS-CoV-2 RNA PCR Negative
--- NOTE | 2021-11-03 17:14 | ED.ABDPAIN ---
HPI - Abdominal Pain General Chief Complaint: Abdominal Pain Stated Complaint: post op pain after cholecystectomy Time Seen by Provider: 11/03/21 14:14 History of Present Illness HPI narrative: Patient is a 26-year-old male who presents ER with epigastric and right upper quadrant tenderness. Patient reports pain has been severe. He is recently postop from a cholecystectomy 4 days ago. He was hospitalized for persistent abdominal pain as well. He is diabetic and has an insulin pump. Poor oral intake due to pain. Worse with any type of movement and with deep breaths. No pain in his chest and no dyspnea. No chest pain or chest pressure. Denies diarrhea but has had passage of flatus. No abdominal distention. Related Data Home Medications Medication Instructions Recorded Confirmed blood-glucose sensor (Dexcom G6 10/27/21 10/27/21 Sensor device) blood-glucose transmitter (Dexcom 10/27/21 10/27/21 G6 Transmitter device) insulin regular human 100 unit/mL See Rx Instructions .Route .COMPLEX 10/27/21 10/27/21 injection solution (Novolin R Regular U-100 Insulin) Allergies Allergy/AdvReac Type Severity Reaction Status Date / Time No Known Allergies Allergy Verified 11/03/21 13:52 Review of Systems Review of Systems: All systems reviewed & are unremarkable except as noted in HPI and below Constitutional: Constitutional: Denies chills, Denies fatigue and Denies fever(s) Cardiovascular: Cardiovascular: Denies chest pain and Denies radiating jaw, neck or arm pain Respiratory: Respiratory: Denies cough and Denies dyspnea Gastrointestinal: Gastrointestinal: Reports abdominal pain, Denies constipation, Denies diarrhea, Denies nausea and Denies vomiting Genitourinary: Genitourinary: Denies dysuria and Denies urinary frequency [facility] Past Medical History Medical History (Updated 11/03/21 @ 18:32 by Delvis Moreno MD) Diabetes type I History of ulcerative colitis Surgical History Surgical History (Updated 11/03/21 @ 18:30 by Delvis Moreno MD) H/O colonoscopy History of cholecystectomy History of esophagogastroduodenoscopy (EGD) History of liver biopsy Social History Social History Smoking status: Former smoker Tobacco type: cigarettes Alcohol intake: current Drinks per week: 2 Substance use: never Gender identity (if verbalized by the patient): Male Sexual Orientation (if Verbalized by the Patient): Straight or Heterosexual Spiritual care concerns: No Exam Narrative: GENERAL: Uncomfortable-appearing, well-nourished, and in no acute distress. HEAD: Normocephalic, atraumatic. EYES: PERRL and EOMI. CHEST: Clear to auscultation. No respiratory distress. HEART: Regular rate and rhythm. Normal peripheral pulses. ABDOMEN: Soft, diffusely tender but guarding in the right upper quadrant and epigastrium. Well-healing surgical port sites. Some bruising noted. EXTREMITIES: Normal range of motion. No edema. SKIN: Warm, dry, no rash. NEURO: Alert and oriented x3. PSYCH: Normal mood and affect. Course Course Emergency Course: General surgery has been patient's bedside. Recommend stat HIDA scan and they are coming in at 6:30 PM to scan the patient. Patient will be admitted to the general surgery service regardless for pain control and medicine will be consulted for diabetic management. Vital Signs Vital signs: Vital Signs Temperature 97.9 F 11/03/21 14:04 Pulse Rate 87 11/03/21 14:04 Respiratory Rate 20 11/03/21 14:04 Blood Pressure 147/105 H 11/03/21 14:04 Pulse Oximetry 99 11/03/21 14:04 Oxygen Delivery Room Air 11/03/21 14:04 Temperature 97.7 F 11/03/21 14:21 Pulse Rate 87 11/03/21 17:33 Respiratory Rate 18 11/03/21 17:33 Blood Pressure 133/91 H 11/03/21 17:33 Pulse Oximetry 98 11/03/21 17:33 Oxygen Delivery Room Air 11/03/21 14:04 MDM - Abdominal Pain Lab Data
--- NOTE | 2021-11-03 17:35 | PM.IMHP ---
H&P: HPI History of Present Illness Date/Time: 11/03/21 17:35 Chief Complaint: Abdominal pain Narrative: patient is a 26-year-old man who had a laparoscopic cholecystectomy for cholecystitis with gallstones on 10/30/2021, 4 days ago. He called the office today saying he was having constant sharp pain near his epigastric incision. It is painful to stand up straight laid down flat or cough. He was taking hydrocodone and described his pain as 7 to 8/10. He was asked to come to the emergency room. I saw him in the emergency room. He described that he has had epigastric abdominal pain ever since his gallbladder surgery 4 days ago. It never went away. He was in pain today and when he stood up, tears were rolling down his cheeks. He has not been vomiting nor has he noticed any fever. I reviewed his previous hospitalization. His progress notes describe his pain as improving consistent with the usual postoperative experience and eventual discharge on postop day 2. Requiring only oral analgesics. He denies that his pain was getting any better at all and that it has been severe ever since the surgery. The oral pain medicines have never relieved the pain at all. He has gotten some relief in the emergency room as he has been getting some morphine. Patient had lab work in the emergency room as well as a CT scan. CBC showed a normal white count of 6400. Hemoglobin was 13.1. Liver enzymes looked good. All results were normal except his bilirubin was 1.4. Bilirubin of 1.4 was actually lower than any of the bilirubins while he was still in the hospital. It was lower even then his bilirubin on 11/[address] scan of the abdomen and pelvis was done and showed some inflammatory change in the right upper quadrant consistent with gallbladder surgery. There was minimal trace fluid in the right upper quadrant. There was also some inflammatory change at the umbilicus also consistent with a surgical site. Further review of his previous admission showed that he had some concerns regarding suicidal ideation and overdosing on insulin. He was admitted to the intensive care unit on that previous admission. He was seen by both General surgery and Gastroenterology as there was concerns for cholecystitis on his CT scan from 10/27/2021. Right upper quadrant ultrasound done the same day did show gallstones but did not show cholecystitis. When he came to the emergency room and was admitted his main complaint was nausea and vomiting. He had a elevated blood sugar as well. He also noted some abdominal pain but this was not his main complaint but more a side effect of the nausea and vomiting. His story very to some degree in that the general surgery consultation reported 3 days of poor appetite associated with epigastric pain and nausea and vomiting. At the initial consultation, patient described occasional stomach aches but never anything this severe. To the other examiners, he did not describe any severe abdominal pain. He also was unaware that he had cirrhosis but does describe he had a liver biopsy at either [facility] or somewhere in [place], he was not sure. His initial consult was 10/28, progress note from October 29 however describes that he has had abdominal pain with nausea several times for weeks and was anxious to get his gallbladder out. He also had a gastroenterology consultation. That consult dictation did not even describe any abdominal pain only nausea and vomiting. It also notes a remote history of ulcerative colitis which was diagnosed in [place] [employer]. He could not recall any treatment he was given but does remember he had some colonoscopies and was under the impression it had resolved. 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 He was not sure if he had ever been told he had cirrhosis. When he was admitted on October 27, his bilirubin was pretty
[2021-11-03] MEDS: SODIUM CHLORIDE 0.9% IV 1,000 ML 125 ML IV CONT (17:38)
[2021-11-03] MEDS: HYDROcodone/acetaminophen (*CRX) 5-325 MG TABLET 1 TAB PO ×2 (17:59→22:17)
--- NOTE | 2021-11-03 21:56 | ADMGEN ---
This patient, Jamie Larry, was admitted to [address] [facility] Surg Room 315-02. Patient/family oriented to hospital policies and general routines including ID bracelet, bed and alarms, visiting hours, pain management, procedures, bathroom and other care routines, personal items, smoking policy, room service/diet, and visiting hours. Information on how to activate the Rapid Response Team has been discussed. Patient/Family are encouraged to report perceived risks to care and to ask questions if they do not understand what they are told or what they should do.
--- NOTE | 2021-11-03 23:31 | PM.IMHP ---
H&P: HPI History of Present Illness Date/Time: 11/03/21 23:31 Chief Complaint: Post op pain Narrative: this is a 26-year-old male with past medical history significant for type 1 diabetes mellitus, patient just underwent cholecystectomy by laparoscopy surgery he returns today after being discharged due to intractable postoperatively pain worse with movement and deep inspiration has been able to eat and has been able to have is stools denies any fevers, chills, rigors, nausea, vomiting. Patient describes the pain was ripping pain . patient has been admitted for further evaluation management and treatment. Review of Systems Review of Systems: Post op pain Constitutional: Constitutional: Denies chills, Denies fever(s), Denies night sweats, Denies poor appetite and Denies weakness Eyes: Eyes: Denies change in vision ENT: Denies dysphagia, Denies vertigo and Denies odynophagia Cardiovascular: Cardiovascular: Denies chest pain, Denies syncope, Denies irregular heart rhythm, Denies lightheadedness, Denies palpitations and Denies dyspnea on exertion Respiratory: Respiratory: Denies chest congestion, Denies cough, Denies excessive phlegm production, Reports pain on inspiration and Denies dyspnea Gastrointestinal: Gastrointestinal: Reports abdominal pain, Denies dyspepsia, Denies heartburn, Denies diarrhea, Denies nausea and Denies vomiting Genitourinary: Genitourinary: Denies dysuria Musculoskeletal: Musculoskeletal: Denies back pain and Denies joint swelling Integumentary/Breasts: Skin/Breast: Denies rash Neurologic: Denies vertigo, Denies dizziness, Denies focal weakness and Denies Sensory deficit (Neuro) Psychiatric: Psychiatric: Reports no additional psychiatric complaints and Reports as per HPI Endocrine: Endocrine: Denies cold intolerance, Denies fatigue, Denies flushing, Denies heat intolerance, Denies polyphagia, Denies polydipsia and Denies palpitations Hematologic/Lymphatic: Hematologic/Lymphatic: Reports no additional hematologic/lymphatic complaints and Reports as per HPI Allergic/Immunologic: Allergic/Immunologic: Reports no additional allergic/immunologic complaints and Reports as per HPI PMFSH Past Medical History Medical History (Updated 11/03/21 @ 18:32 by Delvis Moreno MD) Diabetes type I History of ulcerative colitis Surgical History Surgical History (Updated 11/03/21 @ 18:30 by Delvis Moreno MD) H/O colonoscopy History of cholecystectomy History of esophagogastroduodenoscopy (EGD) History of liver biopsy Social History Social History Smoking packs per day: 0.2 Smoking cigarettes per day: 4.0 Years smoked: 1 Smoking pack-years: 0.20 Smoking status: Former smoker Tobacco type: cigarettes Smoking end date: 04/08/19 Alcohol intake: current Drinks per week: 30 Substance use: never Gender identity (if verbalized by the patient): Male Sexual Orientation (if Verbalized by the Patient): Straight or Heterosexual Spiritual care concerns: No Meds Home Medications and Allergies Home Medications Medication Instructions Recorded Confirmed Type blood-glucose sensor (Dexcom G6 10/27/21 11/03/21 History Sensor device) blood-glucose transmitter (Dexcom 10/27/21 11/03/21 History G6 Transmitter device) insulin regular human 100 unit/mL See Rx Instructions .Route .COMPLEX 10/27/21 11/03/21 History injection solution (Novolin R Regular U-100 Insulin) hydrocodone 5 mg-acetaminophen 325 1 tablet PO Q6H PRN pain #10 tabs 11/01/21 11/03/21 Rx mg tablet Allergies Allergy/AdvReac Type Severity Reaction Status Date / Time No Known Allergies Allergy Verified 11/03/21 13:52 Vital Signs Vital Signs - 24 hr 11/03/21 14:04 11/03/21 14:21 11/03/21 16:00 Temperature 97.9 F 97.7 F Pulse Rate 87 93 81 Respiratory Rate 20 Blood Pressure 147/105 H 154/97 H 147/98 H Pulse Oximetry 99
[2021-11-04] MEDS: FAMOTIDINE 20 MG/2 ML VIAL IV PUSH ×3 (00:07→20:34)
[2021-11-04] MEDS: SODIUM CHLORIDE 0.9% IV 1,000 ML 125 ML IV CONT (00:07)
[2021-11-04] MEDS: HYDROmorphone HCL INJ (*CRX) 1 MG/ML SYR IV PUSH ×2 (03:35→09:05)
[2021-11-04 04:08] VITALS: BP 139/84; PULSE 75; RESP 16; TEMP 36.4; O2SAT 98
[2021-11-04 06:26] LABS: Basophils Absolute Auto 0.1 K/mm3 (0.0-0.1); Basophils Percent Auto 1.1 % (0.2-1.2); Eosinophils Absolute Auto 0.2 K/mm3 (0-0.3); Eosinophils Percent Auto 4.1 % (0-4.4); Hematocrit 37.1 % (42.0-52.0); Hemoglobin 12.6 g/dL (14.0-18.0); Immature Granulocyte Absolute 0.04 K/mm3 (0.00-0.031); Immature Granulocyte Percent A 0.7 % (0-0.5); Lymphocytes Absolute Auto 1.28 K/mm3 (0.9-3.2); Lymphocytes Percent Auto 23.7 % (18.3-44.2); Mean Corpuscular Hemoglobin 29.6 pg (26-34); Mean Corpuscular Volume 87.3 fl (80-100); Mean Platelet Volume 10.2 fl (7.4-10.4); Monocytes Absolute Auto 0.5 K/mm3 (0.1-0.6); Monocytes Percent Auto 9.1 % (2.6-8.5); Neutrophils Absolute Auto 3.3 K/mm3 (1.3-6.7); Neutrophils Percent Auto 61.3 % (45.5-73.1); Platelet Count Result 190 k/mm3 (150-375); Red Blood Count 4.25 M/mm3 (4.6-6.20); Red Cell Distribution Width 12.7 % (11.5-14.5); White Blood Count 5.4 K/mm3 (4.5-10.0)
[2021-11-04 06:34] LABS: Alanine Aminotransferase 18 U/L (6-50); Albumin Level 3.5 g/dL (3.5-5.1); Alkaline Phosphatase 106 U/L (38-126); Anion Gap 8 mmol/L (8-16); Aspartate Amino Transferase 23 U/L (17-59); Blood Urea Nitrogen 13 mg/dL (9-20); Calcium 8.3 mg/dL (8.4-10.2); Carbon Dioxide 27 mmol/L (22-30); Chloride 105 mmol/L (98-107); Estimated CRCL calculation 144 ml/min; Estimated Glomerular Filt Rate > 60; Glucose 176 mg/dL (65-110); Lipase 22 U/L (23-300); Potassium 3.6 mmol/L (3.4-5.0); Sodium 140 mmol/L (137-145)
[2021-11-04] MEDS: traMADol HCL (*CRX) 50 MG TABLET PO (06:50)
[2021-11-04 08:16] LABS: Glucose Point of Care 217 mg/dl (65-105)
[2021-11-04] MEDS: ENOXAPARIN 40 MG/0.4 ML SYRINGE SUB-Q (09:06)
--- NOTE | 2021-11-04 09:45 | PM.IMPN ---
Progress Note: A&P Assessment and Plan (1) Intractable abdominal pain: Code(s): R10.9 - Unspecified abdominal pain Status: Acute Assessment and Plan: Postop day 5 General surgery on board Abdominal CT shows fat stranding and trace fluid in the gallbladder fossa, and laboratory changes of the umbilicus HIDA scan was unremarkable without evidence of bile leak Pain medications on board Continue to trend pain Pain might be a little hard to control as the patient does drink a lot. (2) Postoperative abdominal pain: Code(s): R10.9 - Unspecified abdominal pain; G89.18 - Other acute postprocedural pain Status: Acute Assessment and Plan: See above (3) Cholelithiasis and acute cholecystitis without obstruction: Code(s): K80.00 - Calculus of gallbladder with acute cholecystitis without obstruction Status: Chronic Assessment and Plan: status post cholecystectomy on 10/30/2021 General surgery on the case Continue Trend pain Pain medications available (4) T1DM (type 1 diabetes mellitus): Qualifiers: Diabetes mellitus complication status: with hyperglycemia Qualified Code(s): E10.65 - Type 1 diabetes mellitus with hyperglycemia Code(s): E10.9 - Type 1 diabetes mellitus without complications Status: Chronic Assessment and Plan: Current glucose 176 Patient uses an insulin device Last A1c from 10/27/2021 was 5.9 Continue trend glucose Adjust therapy as indicated Hypoglycemia protocol (5) Cirrhosis: Code(s): K74.60 - Unspecified cirrhosis of liver Status: Acute Assessment and Plan: Abdominal CT notes cirrhosis Education about alcohol cessation given for 9 minutes Patient notes to drink about 30-40 drinks a week Last drink was 10/25/2021 No indication for CIWA need (6) Ulcerative colitis: Code(s): K51.90 - Ulcerative colitis, unspecified, without complications Status: Acute Assessment and Plan: Patient was diagnosed evidently in [place] No indication of the CT scan White blood cell count 5.4 (7) Alcohol abuse: Code(s): F10.10 - Alcohol abuse, uncomplicated Status: Acute Assessment and Plan: History of heavy drinking with current use of 30-40 drinks per week Cirrhosis noted on CT During cessation provided to patient Last drink was 10/27/2021 no indication for CIWA at this time (8) Hypertension: Code(s): I10 - Essential (primary) hypertension Status: Acute Assessment and Plan: Current BP 139/84 No home therapy Probably related to pain Trend Blood pressure Adjust therapy as indicated Consider initiating therapy if indicated Plan I am also getting blood cultures drawn to rule out infection as the patient does have the sweats which could be from the pain. Time Spent With Patient Time with patient: 25 - 35 minutes Subjective Date/time seen: 11/04/21 11:26 Interval history: 11/04/21 0945 Patient was lying in bed. Patient seemed to be very stiff at this time. Incision sites look to be okay. Patient stated that he is having a very dull pain in the right upper quadrant he is also having some in the middle that is dull, throbbing and aching. He does claim that his pain is a 7/10. He denies any vomiting, diarrhea, constipation however he is standing is lightheaded dizzy and that if he gets up he uses the pole as a cane. Patient is also very diaphoretic and sweaty. I did talk to the patient about his drinking habits and he does say he goes in about 2 to 3 times a week and that drinks about 10 drinks each time roughly 30-40 drinks a week. He said his last drink was the Saturday before surgery. I have also discussed with the patient that his diabetes is doing okay as is A1c from is 5.9. Blood pressure does appear to be a little borderli
--- NOTE | 2021-11-04 09:45 | P.PNIM_ITS ---
Progress Note: A&P Assessment and Plan (1) Intractable abdominal pain: Code(s): R10.9 - Unspecified abdominal pain Status: Acute Assessment and Plan: * Postop day 5 * General surgery on board * Abdominal CT shows fat stranding and trace fluid in the gallbladder fossa, and laboratory changes of the umbilicus * HIDA scan was unremarkable without evidence of bile leak * Pain medications on board * Continue to trend pain * Pain might be a little hard to control as the patient does drink a lot. (2) Postoperative abdominal pain: Code(s): R10.9 - Unspecified abdominal pain; G89.18 - Other acute postprocedural pain Status: Acute Assessment and Plan: * See above (3) Cholelithiasis and acute cholecystitis without obstruction: Code(s): K80.00 - Calculus of gallbladder with acute cholecystitis without obstruction Status: Chronic Assessment and Plan: * status post cholecystectomy on 10/30/2021 * General surgery on the case * Continue Trend pain * Pain medications available (4) T1DM (type 1 diabetes mellitus): Qualifiers: Diabetes mellitus complication status: with hyperglycemia Qualified Code(s): E10.65 - Type 1 diabetes mellitus with hyperglycemia Code(s): E10.9 - Type 1 diabetes mellitus without complications Status: Chronic Assessment and Plan: * Current glucose 176 * Patient uses an insulin device * Last A1c from 10/27/2021 was 5.9 * Continue trend glucose * Adjust therapy as indicated * Hypoglycemia protocol (5) Cirrhosis: Code(s): K74.60 - Unspecified cirrhosis of liver Status: Acute Assessment and Plan: * Abdominal CT notes cirrhosis * Education about alcohol cessation given for 9 minutes * Patient notes to drink about 30-40 drinks a week * Last drink was 10/25/2021 * No indication for CIWA need (6) Ulcerative colitis: Code(s): K51.90 - Ulcerative colitis, unspecified, without complications Status: Acute Assessment and Plan: * Patient was diagnosed evidently in [place] * No indication of the CT scan * White blood cell count 5.4 (7) Alcohol abuse: Code(s): F10.10 - Alcohol abuse, uncomplicated Status: Acute Assessment and Plan: * History of heavy drinking with current use of 30-40 drinks per week * Cirrhosis noted on CT * During cessation provided to patient * Last drink was 10/27/2021 no indication for CIWA at this time (8) Hypertension: Code(s): I10 - Essential (primary) hypertension Status: Acute Assessment and Plan: * Current BP 139/84 * No home therapy * Probably related to pain * Trend Blood pressure * Adjust therapy as indicated * Consider initiating therapy if indicated Plan I am also getting blood cultures drawn to rule out infection as the patient does have the sweats which could be from the pain. Time Spent With Patient Time with patient: 25 - 35 minutes Subjective Date/time seen: 11/04/21 11:26 Interval history: 11/04/21 0945 Patient was lying in bed. Patient seemed to be very stiff at this time. Incision sites look to be okay. Patient stated that he is having a very dull pain in the right upper quadrant he is also having some in the middle that is dull, throbbing a
[2021-11-04 11:45] LABS: Glucose Point of Care 211 mg/dl (65-105)
--- NOTE | 2021-11-04 11:57 | PM.PNGS ---
Progress Note: A&P Assessment and Plan (1) Postoperative abdominal pain: Code(s): R10.9 - Unspecified abdominal pain; G89.18 - Other acute postprocedural pain Status: Acute Assessment and Plan: HIDA scan as well as CT scan imaging both negative yesterday in the emergency room. Pain is not from a surgical complication. Review of operative report does show the epigastric trocar site was a larger port, 12 mm. While this is not abnormal, it is a larger port than the other incisions. Also this port was closed at the fascial level during surgery and sometimes that closure can be more painful. Pain does seem to be associated with the epigastric trocar site. Pain is not relieved with his hydromorphone. Will try [employer] morphine today. Will also start scheduled dose of IV ibuprofen. Hopefully will start to get some relief soon. (2) Cholelithiasis and acute cholecystitis without obstruction: Code(s): K80.00 - Calculus of gallbladder with acute cholecystitis without obstruction Status: Chronic Assessment and Plan: Path noted, no evidence of surgical complication. Please see above. (3) Alcohol abuse: Code(s): F10.10 - Alcohol abuse, uncomplicated Status: Chronic Assessment and Plan: Hospitalist note appreciated. Patient seems to have history of large amount of beer intake. This may be playing a role in his inability to obtain postoperative pain control. (4) T1DM (type 1 diabetes mellitus): Qualifiers: Diabetes mellitus complication status: with hyperglycemia Qualified Code(s): E10.65 - Type 1 diabetes mellitus with hyperglycemia Code(s): E10.9 - Type 1 diabetes mellitus without complications Status: Chronic Assessment and Plan: Hospitalist service managing. Subjective Subjective Date/Time Seen: 11/04/21 11:57 Post Op day: 5 ( Lap choly performed 10/30/2021) Patient reports: still having pain ( Pain is no better. Morphine changed to Dilaudid. Patient not sure why this was done. Hurts to breathe and hurts to eat. Food does not make the pain worse.), tolerating a regular diet ( Had eaten nearly 100% of his breakfast tray when I was in seeing him.) and afebrile Review of Systems Review of Systems: All systems reviewed & are unremarkable except as noted in HPI and below ( HPI and those items noted below) Constitutional: Constitutional: Denies chills and Denies fever(s) Cardiovascular: Cardiovascular: Denies chest pain, Denies diaphoresis, Denies dyspnea and Denies paroxysmal nocturnal dyspnea Respiratory: Respiratory: Denies chest congestion, Denies cough and Denies dyspnea Gastrointestinal: Gastrointestinal: Reports as per HPI, Reports abdominal pain ( epigastric primarily), Denies nausea and Denies vomiting Integumentary/Breasts: Skin/Breast: Denies lesions and Denies rash Exam Const: General: comfortable and no acute distress; No confusion Nutritional Appearance: average body habitus Orientation/consciousness: No confusion Chest: Chest palpation & inspection: normal inspection of the chest and no tenderness Resp: Effort & Inspection: normal respiratory effort Auscultation: clear to auscultation bilaterally Cardio: Rate: regular rate Rhythm: regular rhythm GI: Inspection: incision ( incisions dry and healing well) GI Palp: Yes Soft to palpation, Yes Tenderness to palpation present (GI) ( upper abdomen primarily epigastric), No Guarding due to palpation present (GI) and No Rebound tenderness present Auscultation: normal bowel sounds Neuro: General: patient oriented x3, no focal motor deficits and No confusion Extrem: General: no calf tenderness and no edema Objective Data Vital Signs Vital Signs: Vital Signs - 24 hr 11/03/21 14:04 11/03/21 14:21 11/03/21 16:00 Temperature 36.6 C 36.5 C Pulse Rate 87 93 81 Respiratory Rate 20 Blood Pressure 147/105 H 154/97 H 147/98 H Pulse Oximetry 99 99 97 Oxygen Delivery R
[2021-11-04 14:00] VITALS: BP 144/91; PULSE 88; RESP 16; TEMP 36.3; O2SAT 98
[2021-11-04] MEDS: IBUPROFEN IV 800 MG/200 ML 800 MG/200 ML BAG 400 MG IVPB ×2 (14:15→20:31)
[2021-11-04 15:34] VITALS: RESP 18
[2021-11-04] MEDS: MORPHINE SULFATE PCA (*CRX) 30 MG/30 ML SYR IV CONT ×2 (15:34→21:18)
[2021-11-04 16:47] LABS: Glucose Point of Care 160 mg/dl (65-105)
[2021-11-04] MEDS: ONDANSETRON INJ 4 MG/2 ML VIAL IV PUSH ×2 (16:57→21:15)
[2021-11-04] MEDS: SENNA/DOCUSATE SODIUM TABLET 2 TAB PO (20:34)
[2021-11-04 21:03] VITALS: BP 158/102; PULSE 85; RESP 18; TEMP 36.4; O2SAT 98
[2021-11-04 21:18] VITALS: RESP 20
[2021-11-05] VITALS (8 sets, daily range): BP systolic 147–153; BP diastolic 90–100; PULSE 76–88; RESP 14–20; TEMP 36.3–37.1; O2SAT 94–98
[2021-11-05] MEDS: SODIUM CHLORIDE 0.9% IV 1,000 ML 125 ML IV CONT (00:13)
[2021-11-05] MEDS: IBUPROFEN IV 800 MG/200 ML 800 MG/200 ML BAG 400 MG IVPB ×5 (00:13→23:24)
[2021-11-05 06:27] LABS: Basophils Absolute Auto 0.1 K/mm3 (0.0-0.1); Basophils Percent Auto 0.7 % (0.2-1.2); Eosinophils Absolute Auto 0.1 K/mm3 (0-0.3); Eosinophils Percent Auto 1.8 % (0-4.4); Hematocrit 35.3 % (42.0-52.0); Immature Granulocyte Absolute 0.04 K/mm3 (0.00-0.031); Immature Granulocyte Percent A 0.5 % (0-0.5); Lymphocytes Absolute Auto 1.29 K/mm3 (0.9-3.2); Lymphocytes Percent Auto 17.6 % (18.3-44.2); Mean Corpuscular Hemoglobin 29.6 pg (26-34); Mean Corpuscular Volume 86.9 fl (80-100); Mean Platelet Volume 10.1 fl (7.4-10.4); Monocytes Absolute Auto 0.6 K/mm3 (0.1-0.6); Monocytes Percent Auto 7.8 % (2.6-8.5); Neutrophils Absolute Auto 5.2 K/mm3 (1.3-6.7); Neutrophils Percent Auto 71.6 % (45.5-73.1); Platelet Count Result 183 k/mm3 (150-375); Red Blood Count 4.06 M/mm3 (4.6-6.20); Red Cell Distribution Width 12.7 % (11.5-14.5); White Blood Count 7.3 K/mm3 (4.5-10.0)
[2021-11-05 06:33] LABS: Alanine Aminotransferase 25 U/L (6-50); Albumin Level 3.2 g/dL (3.5-5.1); Alkaline Phosphatase 115 U/L (38-126); Anion Gap 8 mmol/L (8-16); Aspartate Amino Transferase 37 U/L (17-59); Bilirubin,Total 1.3 mg/dL (0.2-1.3); Blood Urea Nitrogen 6 mg/dL (9-20); Calcium 8.6 mg/dL (8.4-10.2); Carbon Dioxide 28 mmol/L (22-30); Chloride 103 mmol/L (98-107); Estimated CRCL calculation 127 ml/min; Estimated Glomerular Filt Rate > 60; Glucose 163 mg/dL (65-110); Magnesium 1.8 mg/dL (1.6-2.3); Potassium 4.1 mmol/L (3.4-5.0); Sodium 139 mmol/L (137-145)
[2021-11-05 08:12] LABS: Glucose Point of Care 193 mg/dl (65-105)
[2021-11-05] MEDS: ONDANSETRON INJ 4 MG/2 ML VIAL IV PUSH (08:19)
[2021-11-05] MEDS: polyethylene glycoL 3350 17 GM POWD.PACK PO (08:21)
[2021-11-05] MEDS: FAMOTIDINE 20 MG/2 ML VIAL IV PUSH ×2 (08:21→20:32)
[2021-11-05] MEDS: ENOXAPARIN 40 MG/0.4 ML SYRINGE SUB-Q (08:21)
[2021-11-05] MEDS: SODIUM CHLORIDE 0.9% IV 1,000 ML 60 ML IV CONT (10:33)
--- NOTE | 2021-11-05 11:16 | PM.PNGS ---
Progress Note: A&P Assessment and Plan (1) Postoperative abdominal pain: Code(s): R10.9 - Unspecified abdominal pain; G89.18 - Other acute postprocedural pain Status: Acute Assessment and Plan: Likely patient is very sensitive to pain and epigastric trocar site closure giving him more postop pain than is usually seen. Seems to be improving. (2) Cholelithiasis and acute cholecystitis without obstruction: Code(s): K80.00 - Calculus of gallbladder with acute cholecystitis without obstruction Status: Chronic Assessment and Plan: No surgical complications evident (3) Nausea and vomiting: Code(s): R11.2 - Nausea with vomiting, unspecified Status: Acute Assessment and Plan: Seems to be associated with the morphine CHIP SILO TENDER. Will switch to fentanyl CHIP SILO TENDER. Does have Zofran p.r.n. (4) T1DM (type 1 diabetes mellitus): Qualifiers: Diabetes mellitus complication status: with hyperglycemia Qualified Code(s): E10.65 - Type 1 diabetes mellitus with hyperglycemia Code(s): E10.9 - Type 1 diabetes mellitus without complications Status: Chronic Assessment and Plan: Appreciate hospitalist consultation and care. Subjective Subjective Date/Time Seen: 11/05/21 11:16 Post Op day: #6 Patient reports: pain is less (CHIP SILO TENDER helped with the pain.), no bowel movement, nausea (Nausea worse when doses morphine CHIP SILO TENDER) and afebrile Review of Systems Review of Systems: All systems reviewed & are unremarkable except as noted in HPI and below (HPI and those items noted below) Constitutional: Constitutional: Denies chills and Denies fever(s) Cardiovascular: Cardiovascular: Denies chest pain and Denies dyspnea Respiratory: Respiratory: Denies cough and Denies dyspnea Gastrointestinal: Gastrointestinal: Reports as per HPI, Reports abdominal pain, Reports nausea and Reports vomiting Exam Const: General: comfortable and no acute distress; No confusion Orientation/consciousness: patient oriented x3 and No confusion GI: Inspection: non-distended and incision (Healing well) GI Palp: Yes Soft to palpation, Yes Tenderness to palpation present (GI) (More focal at epigastric trocar site), No Guarding due to palpation present (GI) and No Rebound tenderness present Auscultation: normal bowel sounds Extrem: General: no calf tenderness and no edema Objective Data Vital Signs Vital Signs: Vital Signs - 24 hr 11/04/21 15:34 11/04/21 14:00 11/04/21 21:03 Temperature 36.3 C L 36.4 C Pulse Rate 88 85 Respiratory Rate 18 16 18 Blood Pressure 144/91 H 158/102 H Pulse Oximetry 98 98 Oxygen Delivery 11/04/21 21:18 11/04/21 20:00 11/05/21 05:03 Temperature 37.1 C Pulse Rate 86 Respiratory Rate 20 18 Blood Pressure 153/98 H Pulse Oximetry 94 Oxygen Delivery Room Air 11/05/21 08:00 Temperature Pulse Rate Respiratory Rate Blood Pressure Pulse Oximetry Oxygen Delivery Room Air Intake/Output Intake/Output: Intake & Output 11/02/21 11/03/21 11/04/21 11/05/21 23:59 23:59 23:59 23:59 Intake Total 3560 1520 Balance 3560 1520 Meds/Results Medications: Active Medications Generic Name Dose Route Start Last Admin Trade Name Freq PRN Reason Stop Dose Admin Enoxaparin Sodium 40 mg 11/04/21 09:00 11/05/21 08:21 Enoxaparin 40 Mg/0.4 Ml Syringe SUB-Q 40 mg DAILY MEGHAN Administration Famotidine 20 mg 11/03/21 21:00 11/05/21 08:21 Famotidine 20 Mg/2 Ml Vial IV PUSH 20 mg Q12HR MEGHAN Administration Home Med 0 each 11/04/21 00:40 Home Med Regular Insulin Pump SUB-Q 12/04/21 00:39 DAILY MEGHAN Sodium Chloride 1,000 mls @ 60 mls/hr 11/03/21 17:15 11/05/21 10:33 Normal Saline Iv IV CONT 60 mls/hr .[id number] MEGHAN Administration Ibuprofen 800 mg in 200 mls @ 400 mls/hr 11/04/21 12:30 11/05/21 05:13 Caldolor 800 Mg/200 Ml IVPB 400 mls/hr Q6HR MEGHAN Administration Naloxone HCl 0.1 mg 11/03/21
[2021-11-05 11:42] LABS: Glucose Point of Care 174 mg/dl (65-105)
[2021-11-05] MEDS: FENTANYL 600MCG/NS30MLPCA(*CRX 600 MCG/30 ML PCA.VIAL IV CONT (13:01)
--- NOTE | 2021-11-05 14:15 | PM.IMPN ---
Progress Note: A&P Assessment and Plan (1) Intractable abdominal pain: Code(s): R10.9 - Unspecified abdominal pain Status: Acute Assessment and Plan: Postop day 6 General surgery on board Abdominal CT shows fat stranding and trace fluid in the gallbladder fossa, and laboratory changes of the umbilicus HIDA scan was unremarkable without evidence of bile leak Pain medications on board, CH[employer]IR[employer]ERSON [employer]IOLOGY being switched to fentanyl station supervisor Continue to trend pain Pain might be a little hard to control as the patient does drink a lot. (2) Postoperative abdominal pain: Code(s): R10.9 - Unspecified abdominal pain; G89.18 - Other acute postprocedural pain Status: Acute Assessment and Plan: See above (3) Cholelithiasis and acute cholecystitis without obstruction: Code(s): K80.00 - Calculus of gallbladder with acute cholecystitis without obstruction Status: Chronic Assessment and Plan: status post cholecystectomy on 10/30/2021 General surgery on the case Continue Trend pain Pain medications available (4) T1DM (type 1 diabetes mellitus): Qualifiers: Diabetes mellitus complication status: with hyperglycemia Qualified Code(s): E10.65 - Type 1 diabetes mellitus with hyperglycemia Code(s): E10.9 - Type 1 diabetes mellitus without complications Status: Chronic Assessment and Plan: Current glucose 163 Patient uses an insulin device Last A1c from 10/27/2021 was 5.9 Continue trend glucose Adjust therapy as indicated Hypoglycemia protocol (5) Cirrhosis: Code(s): K74.60 - Unspecified cirrhosis of liver Status: Acute Assessment and Plan: Abdominal CT notes cirrhosis Education about alcohol cessation given for 9 minutes Patient notes to drink about 30-40 drinks a week Last drink was 10/25/2021 No indication for CIWA need (6) Ulcerative colitis: Code(s): K51.90 - Ulcerative colitis, unspecified, without complications Status: Acute Assessment and Plan: Patient was diagnosed evidently in [place] No indication of the CT scan White blood cell count 7.3 (7) Alcohol abuse: Code(s): F10.10 - Alcohol abuse, uncomplicated Status: Chronic Assessment and Plan: History of heavy drinking with current use of 30-40 drinks per week Cirrhosis noted on CT During cessation provided to patient Last drink was 10/27/2021 no indication for CIWA at this time (8) Hypertension: Code(s): I10 - Essential (primary) hypertension Status: Acute Assessment and Plan: Current BP 153/98 No home therapy Probably related to pain Trend Blood pressure Adjust therapy as indicated Consider initiating therapy if indicated Time Spent With Patient Time with patient: Greater than 35 minutes Subjective Date/time seen: 11/05/211414 Interval history: 11/05/211414 Patient is doing okay today. Pain is about the same. Talked to Dr. Jett who is going changes pain medications. He denies any chest pain, shortness a breath, weakness or fatigue he can not tell of his nausea is nausea or his lightheadedness. 11/04/21 0945 Patient was lying in bed. Patient seemed to be very stiff at this time. Incision sites look to be okay. Patient stated that he is having a very dull pain in the right upper quadrant he is also having some in the middle that is dull, throbbing and aching. He does claim that his pain is a 7/10. He denies any vomiting, diarrhea, constipation however he is standing is lightheaded dizzy and that if he gets up he uses the pole as a cane. Patient is also very diaphoretic and sweaty. I did talk to the patient about his drinking habits and he does say he goes in about 2 to 3 times a week and that drinks about 10 drinks each time roughly 30-40 drinks a week. He said his last drink was the Wedn
--- NOTE | 2021-11-05 14:15 | P.PNIM_ITS ---
Progress Note: A&P Assessment and Plan (1) Intractable abdominal pain: Code(s): R10.9 - Unspecified abdominal pain Status: Acute Assessment and Plan: * Postop day 6 * General surgery on board * Abdominal CT shows fat stranding and trace fluid in the gallbladder fossa, and laboratory changes of the umbilicus * HIDA scan was unremarkable without evidence of bile leak * Pain medications on board, METAL COATER being switched to fentanyl hand screen printer * Continue to trend pain * Pain might be a little hard to control as the patient does drink a lot. (2) Postoperative abdominal pain: Code(s): R10.9 - Unspecified abdominal pain; G89.18 - Other acute postprocedural pain Status: Acute Assessment and Plan: * See above (3) Cholelithiasis and acute cholecystitis without obstruction: Code(s): K80.00 - Calculus of gallbladder with acute cholecystitis without obstruction Status: Chronic Assessment and Plan: * status post cholecystectomy on 10/30/2021 * General surgery on the case * Continue Trend pain * Pain medications available (4) T1DM (type 1 diabetes mellitus): Qualifiers: Diabetes mellitus complication status: with hyperglycemia Qualified Code(s): E10.65 - Type 1 diabetes mellitus with hyperglycemia Code(s): E10.9 - Type 1 diabetes mellitus without complications Status: Chronic Assessment and Plan: * Current glucose 163 * Patient uses an insulin device * Last A1c from 10/27/2021 was 5.9 * Continue trend glucose * Adjust therapy as indicated * Hypoglycemia protocol (5) Cirrhosis: Code(s): K74.60 - Unspecified cirrhosis of liver Status: Acute Assessment and Plan: * Abdominal CT notes cirrhosis * Education about alcohol cessation given for 9 minutes * Patient notes to drink about 30-40 drinks a week * Last drink was 10/25/2021 * No indication for CIWA need (6) Ulcerative colitis: Code(s): K51.90 - Ulcerative colitis, unspecified, without complications Status: Acute Assessment and Plan: * Patient was diagnosed evidently in [place] * No indication of the CT scan * White blood cell count 7.3 (7) Alcohol abuse: Code(s): F10.10 - Alcohol abuse, uncomplicated Status: Chronic Assessment and Plan: * History of heavy drinking with current use of 30-40 drinks per week * Cirrhosis noted on CT * During cessation provided to patient * Last drink was 10/27/2021 no indication for CIWA at this time (8) Hypertension: Code(s): I10 - Essential (primary) hypertension Status: Acute Assessment and Plan: * Current BP 153/98 * No home therapy * Probably related to pain * Trend Blood pressure * Adjust therapy as indicated * Consider initiating therapy if indicated Time Spent With Patient Time with patient: Greater than 35 minutes Subjective Date/time seen: 11/05/211414 Interval history: 11/05/211414 Patient is doing okay today. Pain is about the same. Talked to Dr. Jett who is going changes pain medications. He denies any chest pain, shortness a breath, weakness or fatigue he can not tell of his nausea is nausea or his lightheadedness. 11/04/21 0945 Patient was lying in bed. Patient seemed to be very stiff at this time
[2021-11-05] MEDS: METOCLOPRAMIDE HCL INJ 10 MG/2 ML VIAL IV PUSH (15:57)
[2021-11-05] MEDS: ACETAMINOPHEN 500 MG TABLET 1000 MG PO (15:57)
[2021-11-05 16:54] LABS: Glucose Point of Care 145 mg/dl (65-105)
[2021-11-05] MEDS: PANTOPRAZOLE SODIUM IV 40 MG VIAL IV PUSH (20:32)
[2021-11-05] MEDS: SENNA/DOCUSATE SODIUM TABLET 2 TAB PO (20:33)
[2021-11-06] VITALS: RESP 12; O2SAT 98
[2021-11-06 04:11] VITALS: RESP 12; O2SAT 97
[2021-11-06] MEDS: IBUPROFEN IV 800 MG/200 ML 800 MG/200 ML BAG 400 MG IVPB ×2 (05:03→13:38)
[2021-11-06 05:48] VITALS: BP 150/97; PULSE 85; RESP 17; TEMP 36.4; O2SAT 99
[2021-11-06 06:29] LABS: Basophils Percent Auto 0.5 % (0.2-1.2); Eosinophils Absolute Auto 0.2 K/mm3 (0-0.3); Eosinophils Percent Auto 2.5 % (0-4.4); Hematocrit 35.4 % (42.0-52.0); Hemoglobin 12.4 g/dL (14.0-18.0); Immature Granulocyte Absolute 0.05 K/mm3 (0.00-0.031); Immature Granulocyte Percent A 0.8 % (0-0.5); Lymphocytes Absolute Auto 1.27 K/mm3 (0.9-3.2); Lymphocytes Percent Auto 19.8 % (18.3-44.2); Mean Corpuscular Hemoglobin 29.8 pg (26-34); Mean Corpuscular Volume 85.1 fl (80-100); Mean Platelet Volume 9.8 fl (7.4-10.4); Monocytes Absolute Auto 0.5 K/mm3 (0.1-0.6); Monocytes Percent Auto 7.5 % (2.6-8.5); Neutrophils Absolute Auto 4.4 K/mm3 (1.3-6.7); Neutrophils Percent Auto 68.9 % (45.5-73.1); Platelet Count Result 187 k/mm3 (150-375); Red Blood Count 4.16 M/mm3 (4.6-6.20); Red Cell Distribution Width 12.5 % (11.5-14.5); White Blood Count 6.4 K/mm3 (4.5-10.0)
[2021-11-06 06:47] LABS: Alanine Aminotransferase 25 U/L (6-50); Albumin Level 3.3 g/dL (3.5-5.1); Alkaline Phosphatase 122 U/L (38-126); Anion Gap 8 mmol/L (8-16); Aspartate Amino Transferase 31 U/L (17-59); Bilirubin,Total 1.3 mg/dL (0.2-1.3); Blood Urea Nitrogen 5 mg/dL (9-20); Calcium 8.3 mg/dL (8.4-10.2); Carbon Dioxide 27 mmol/L (22-30); Chloride 105 mmol/L (98-107); Estimated CRCL calculation 144 ml/min; Estimated Glomerular Filt Rate > 60; Glucose 163 mg/dL (65-110); Magnesium 1.8 mg/dL (1.6-2.3); Potassium 3.8 mmol/L (3.4-5.0); Sodium 140 mmol/L (137-145)
[2021-11-06 07:32] LABS: Glucose Point of Care 160 mg/dl (65-105)
--- NOTE | 2021-11-06 08:45 | PM.PNGS ---
Progress Note: A&P Assessment and Plan (1) Postoperative abdominal pain: Code(s): R10.9 - Unspecified abdominal pain; G89.18 - Other acute postprocedural pain Status: Acute Assessment and Plan: pain in epigastric trocar site much better controlled. Will DC TELEGRAPHIC TYPEWRITER OPERATOR and change to p.r.n. analgesics. Ambulate more today. If continues to improve, can probably go home tomorrow. (2) Cholelithiasis and acute cholecystitis without obstruction: Code(s): K80.00 - Calculus of gallbladder with acute cholecystitis without obstruction Status: Chronic Assessment and Plan: No evidence surgical complication (3) T1DM (type 1 diabetes mellitus): Qualifiers: Diabetes mellitus complication status: with hyperglycemia Qualified Code(s): E10.65 - Type 1 diabetes mellitus with hyperglycemia Code(s): E10.9 - Type 1 diabetes mellitus without complications Status: Chronic Subjective Subjective Date/Time Seen: 11/06/21 08:45 Patient reports: feels better and pain is less Interval history: nausea gone. Rarely using TELEGRAPHIC TYPEWRITER OPERATOR. Review of Systems Review of Systems: All systems reviewed & are unremarkable except as noted in HPI and below ( HPI) Exam Const: General: comfortable, no acute distress and alert Nutritional Appearance: well nourished Orientation/consciousness: No confusion GI: Inspection: incision ( incisions clean dry and healing well) GI Palp: Yes Soft to palpation and Yes Tenderness to palpation present (GI) ( only at epigastric trocar site. Much better) Auscultation: normal bowel sounds Objective Data Vital Signs Vital Signs: Vital Signs - 24 hr 11/05/21 13:01 11/05/21 14:00 11/05/21 14:00 Temperature 36.3 C L Pulse Rate 88 Respiratory Rate 18 16 16 Blood Pressure 147/100 H Pulse Oximetry 96 11/05/21 15:00 11/05/21 16:00 11/05/21 17:00 Temperature Pulse Rate Respiratory Rate 18 20 18 Blood Pressure Pulse Oximetry 11/05/21 21:46 11/06/21 04:11 11/06/21 00:00 Temperature 37.0 C Pulse Rate 76 Respiratory Rate 16 12 12 Blood Pressure 147/90 H Pulse Oximetry 98 97 98 11/05/21 20:00 11/06/21 05:48 Temperature 36.4 C Pulse Rate 85 Respiratory Rate 14 17 Blood Pressure 150/97 H Pulse Oximetry 96 99 Intake/Output Intake/Output: Intake & Output 11/03/21 11/04/21 11/05/21 11/06/21 23:59 23:59 23:59 23:59 Intake Total 3560 2870 250 Output Total 625 Balance 3560 2245 250 Meds/Results Medications: Active Medications Generic Name Dose Route Start Last Admin Trade Name Freq PRN Reason Stop Dose Admin Acetaminophen 1,000 mg 11/05/21 14:40 11/05/21 15:57 Acetaminophen 500 Mg Tablet PO 1,000 mg Q6H PRN Administration Mild Pain (1-3) or Fever Enoxaparin Sodium 40 mg 11/04/21 09:00 11/05/21 08:21 Enoxaparin 40 Mg/0.4 Ml Syringe SUB-Q 40 mg DAILY MEGHAN Administration Famotidine 20 mg 11/03/21 21:00 11/05/21 20:32 Famotidine 20 Mg/2 Ml Vial IV PUSH 20 mg Q12HR MEGHAN Administration Home Med 0 each 11/04/21 00:40 11/05/21 20:37 Home Med Regular Insulin Pump SUB-Q 12/04/21 00:39 Not Given DAILY MEGHAN Sodium Chloride 1,000 mls @ 60 mls/hr 11/03/21 17:15 11/05/21 20:36 Normal Saline Iv IV CONT Not Given .[id number] MEGHAN Ibuprofen 800 mg in 200 mls @ 400 mls/hr 11/04/21 12:30 11/06/21 07:30 Caldolor 800 Mg/200 Ml IVPB Infused Q6HR MEGHAN Infusion Fentanyl Citrate 600 mcg in 30 mls @ 0 mls/hr 11/05/21 11:12 11/05/21 17:00 Fentanyl 600 Mcg/Ns 30 Ml Locomotive Electrician IV CONT 0 mcg/hr PRN PRN 0 mls/hr TELEGRAPHIC TYPEWRITER OPERATOR Management Titration Protocol 0 MCG/HR Naloxone HCl 0.1 mg 11/03/21 18:19 Naloxone Hcl 0.4 Mg/Ml Vial IV PUSH Q2M PRN Opiate Reversal Ondansetron HCl 4 mg 11/03/21 18:19 11/05/21 08:19 Ondansetron Inj 4 Mg/2 Ml Vial IV PUSH 4 mg Q4H PRN Administration Nausea And Vomiting Pantoprazole Sodium 40 mg 11/05
[2021-11-06] MEDS: ENOXAPARIN 40 MG/0.4 ML SYRINGE SUB-Q (09:02)
[2021-11-06] MEDS: polyethylene glycoL 3350 17 GM POWD.PACK PO (09:03)
[2021-11-06] MEDS: PANTOPRAZOLE 40 MG TABLET PO (09:15)
[2021-11-06 09:58] VITALS: O2SAT 96
--- NOTE | 2021-11-06 10:59 | PC.NURSE ---
Pt signed insulin pump agreement form on 11/04/2021 at 1130, placed in paper chart.
[2021-11-06 11:27] LABS: Glucose Point of Care 201 mg/dl (65-105)
--- NOTE | 2021-11-06 11:30 | P.PNIM_ITS ---
Progress Note: A&P Assessment and Plan (1) Intractable abdominal pain: Code(s): R10.9 - Unspecified abdominal pain Status: Acute Assessment and Plan: * Postop day 7 * General surgery on board * Abdominal CT shows fat stranding and trace fluid in the gallbladder fossa, and laboratory changes of the umbilicus * HIDA scan was unremarkable without evidence of bile leak * Pain medications on board * Continue to trend pain * Pain might be a little hard to control as the patient does drink a lot. (2) Postoperative abdominal pain: Code(s): R10.9 - Unspecified abdominal pain; G89.18 - Other acute postprocedural pain Status: Acute Assessment and Plan: * See above (3) Cholelithiasis and acute cholecystitis without obstruction: Code(s): K80.00 - Calculus of gallbladder with acute cholecystitis without obstruction Status: Chronic Assessment and Plan: * status post cholecystectomy on 10/30/2021 * General surgery on the case * Continue Trend pain * Pain medications available (4) T1DM (type 1 diabetes mellitus): Qualifiers: Diabetes mellitus complication status: with hyperglycemia Qualified Code(s): E10.65 - Type 1 diabetes mellitus with hyperglycemia Code(s): E10.9 - Type 1 diabetes mellitus without complications Status: Chronic Assessment and Plan: * Current glucose 163 * Patient uses an insulin device * Last A1c from 10/27/2021 was 5.9 * Continue trend glucose * Adjust therapy as indicated * Hypoglycemia protocol (5) Cirrhosis: Code(s): K74.60 - Unspecified cirrhosis of liver Status: Acute Assessment and Plan: * Abdominal CT notes cirrhosis * Education about alcohol cessation given for 9 minutes * Patient notes to drink about 30-40 drinks a week * Last drink was 10/25/2021 * No indication for CIWA need (6) Ulcerative colitis: Code(s): K51.90 - Ulcerative colitis, unspecified, without complications Status: Acute Assessment and Plan: * Patient was diagnosed evidently in [place] * No indication of the CT scan * White blood cell count 6.4 (7) Alcohol abuse: Code(s): F10.10 - Alcohol abuse, uncomplicated Status: Chronic Assessment and Plan: * History of heavy drinking with current use of 30-40 drinks per week * Cirrhosis noted on CT * During cessation provided to patient * Last drink was 10/27/2021 no indication for CIWA at this time (8) Hypertension: Code(s): I10 - Essential (primary) hypertension Status: Acute Assessment and Plan: * Current BP 150/97 * No home therapy * Probably related to pain * Trend Blood pressure * Adjust therapy as indicated * Consider initiating therapy if indicated Time Spent With Patient Time with patient: Greater than 35 minutes Subjective Date/time seen: 11/06/21 11:30 Interval history: 11/06/21 1130 Patient was sleeping when I went in. Patient woke very easily and stated that his pain was not there any longer. He denies any chest pain, shortness of breath, nausea, vomiting, diarrhea, constipation, weakness or fatigue. CRIMPING MACHINE OPERATOR FOR METAL has been stopped and patient is to ask for p.r.n. Medication at this time. 11/05/21 1415 Patient is doing okay today. Pain is about
--- NOTE | 2021-11-06 11:30 | PM.IMPN ---
Progress Note: A&P Assessment and Plan (1) Intractable abdominal pain: Code(s): R10.9 - Unspecified abdominal pain Status: Acute Assessment and Plan: Postop day 7 General surgery on board Abdominal CT shows fat stranding and trace fluid in the gallbladder fossa, and laboratory changes of the umbilicus HIDA scan was unremarkable without evidence of bile leak Pain medications on board Continue to trend pain Pain might be a little hard to control as the patient does drink a lot. (2) Postoperative abdominal pain: Code(s): R10.9 - Unspecified abdominal pain; G89.18 - Other acute postprocedural pain Status: Acute Assessment and Plan: See above (3) Cholelithiasis and acute cholecystitis without obstruction: Code(s): K80.00 - Calculus of gallbladder with acute cholecystitis without obstruction Status: Chronic Assessment and Plan: status post cholecystectomy on 10/30/2021 General surgery on the case Continue Trend pain Pain medications available (4) T1DM (type 1 diabetes mellitus): Qualifiers: Diabetes mellitus complication status: with hyperglycemia Qualified Code(s): E10.65 - Type 1 diabetes mellitus with hyperglycemia Code(s): E10.9 - Type 1 diabetes mellitus without complications Status: Chronic Assessment and Plan: Current glucose 163 Patient uses an insulin device Last A1c from 10/27/2021 was 5.9 Continue trend glucose Adjust therapy as indicated Hypoglycemia protocol (5) Cirrhosis: Code(s): K74.60 - Unspecified cirrhosis of liver Status: Acute Assessment and Plan: Abdominal CT notes cirrhosis Education about alcohol cessation given for 9 minutes Patient notes to drink about 30-40 drinks a week Last drink was 10/25/2021 No indication for CIWA need (6) Ulcerative colitis: Code(s): K51.90 - Ulcerative colitis, unspecified, without complications Status: Acute Assessment and Plan: Patient was diagnosed evidently in [place] No indication of the CT scan White blood cell count 6.4 (7) Alcohol abuse: Code(s): F10.10 - Alcohol abuse, uncomplicated Status: Chronic Assessment and Plan: History of heavy drinking with current use of 30-40 drinks per week Cirrhosis noted on CT During cessation provided to patient Last drink was 10/27/2021 no indication for CIWA at this time (8) Hypertension: Code(s): I10 - Essential (primary) hypertension Status: Acute Assessment and Plan: Current BP 150/97 No home therapy Probably related to pain Trend Blood pressure Adjust therapy as indicated Consider initiating therapy if indicated Time Spent With Patient Time with patient: Greater than 35 minutes Subjective Date/time seen: 11/06/21 11:30 Interval history: 11/06/21 1130 Patient was sleeping when I went in. Patient woke very easily and stated that his pain was not there any longer. He denies any chest pain, shortness of breath, nausea, vomiting, diarrhea, constipation, weakness or fatigue. AUTOMOBILE RENTAL REPRESENTATIVE has been stopped and patient is to ask for p.r.n. Medication at this time. 11/05/21 1415 Patient is doing okay today. Pain is about the same. Talked to Dr. Jett who is going changes pain medications. He denies any chest pain, shortness a breath, weakness or fatigue he can not tell of his nausea is nausea or his lightheadedness. 11/04/21 0945 Patient was lying in bed. Patient seemed to be very stiff at this time. Incision sites look to be okay. Patient stated that he is having a very dull pain in the right upper quadrant he is also having some in the middle that is dull, throbbing and aching. He does claim that his pain is a 7/10. He denies any vomiting, diarrhea, constipation however he is standing is lightheaded dizzy and that if he gets
[2021-11-06 14:00] VITALS: BP 134/97; PULSE 77; RESP 18; TEMP 36.3; O2SAT 96
[2021-11-06 16:43] LABS: Glucose Point of Care 111 mg/dl (65-105)
[2021-11-06] MEDS: diphenhydrAMINE HCl INJ 50 MG/ML VIAL 25 MG IV PUSH (17:39)
[2021-11-06] MEDS: SENNA/DOCUSATE SODIUM TABLET 2 TAB PO (21:00)
[2021-11-06 21:42] VITALS: BP 141/98; PULSE 72; RESP 18; TEMP 36.4; O2SAT 98
[2021-11-07 00:44] LABS: Glucose Point of Care 150 mg/dl (65-105)
[2021-11-07 00:44] LABS: Glucose Point of Care 144 mg/dl (65-105)
[2021-11-07 05:26] VITALS: BP 132/79; PULSE 62; RESP 17; TEMP 37.1; O2SAT 99
[2021-11-07 06:56] LABS: Anion Gap 9 mmol/L (8-16); Blood Urea Nitrogen 8 mg/dL (9-20); Calcium 8.7 mg/dL (8.4-10.2); Carbon Dioxide 28 mmol/L (22-30); Chloride 104 mmol/L (98-107); Estimated CRCL calculation 127 ml/min; Estimated Glomerular Filt Rate > 60; Glucose 192 mg/dL (65-110); Potassium 3.6 mmol/L (3.4-5.0); Sodium 141 mmol/L (137-145)
--- NOTE | 2021-11-07 07:30 | P.DS_ITS ---
DS: Admitting Diagnosis Discharge Date 11/07/21729 Admitting Diagnosis Acute pain from acute patty DS: Discharge Diagnosis Discharge Diagnosis (1) Intractable abdominal pain: Code(s): R10.9 - Unspecified abdominal pain Status: Acute Assessment and Plan: * Postop day 8 * General surgery on board * Abdominal CT shows fat stranding and trace fluid in the gallbladder fossa, and laboratory changes of the umbilicus * HIDA scan was unremarkable without evidence of bile leak * Pain medications on board * Continue to trend pain * Pain might be a little hard to control as the patient does drink a lot. (2) Postoperative abdominal pain: Code(s): R10.9 - Unspecified abdominal pain; G89.18 - Other acute postprocedural pain Status: Acute Assessment and Plan: * See above (3) Cholelithiasis and acute cholecystitis without obstruction: Code(s): K80.00 - Calculus of gallbladder with acute cholecystitis without obstruction Status: Chronic Assessment and Plan: * status post cholecystectomy on 10/30/2021 * General surgery on the case * Continue Trend pain * Pain medications available (4) T1DM (type 1 diabetes mellitus): Qualifiers: Diabetes mellitus complication status: with hyperglycemia Qualified Code(s): E10.65 - Type 1 diabetes mellitus with hyperglycemia Code(s): E10.9 - Type 1 diabetes mellitus without complications Status: Chronic Assessment and Plan: * Current glucose 192 * Patient uses an insulin device * Last A1c from 10/27/2021 was 5.9 * Continue trend glucose * Adjust therapy as indicated * Hypoglycemia protocol (5) Cirrhosis: Code(s): K74.60 - Unspecified cirrhosis of liver Status: Chronic Assessment and Plan: * Abdominal CT notes cirrhosis * Education about alcohol cessation given for 9 minutes * Patient notes to drink about 30-40 drinks a week * Last drink was 10/25/2021 * No indication for CIWA need (6) Ulcerative colitis: Code(s): K51.90 - Ulcerative colitis, unspecified, without complications Status: Acute Assessment and Plan: * Patient was diagnosed evidently in [place] * No indication of the CT scan * White blood cell count 6.4 (7) Alcohol abuse: Code(s): F10.10 - Alcohol abuse, uncomplicated Status: Chronic Assessment and Plan: * History of heavy drinking with current use of 30-40 drinks per week * Cirrhosis noted on CT * During cessation provided to patient * Last drink was 10/27/2021 no indication for CIWA at this time * ETOH cessation education given (8) Hypertension: Code(s): I10 - Essential (primary) hypertension Status: Acute Assessment and Plan: * Current BP 132/79 * No home therapy * Probably related to pain * Trend Blood pressure * Adjust therapy as indicated * Consider initiating therapy if indicated DS: Summary Hospital Course Hospital Course: Patient is a 26-year-old male with a past medical history of type 1 diabetes and alcohol abuse who presented to the ED with complaints of severe pain. General surgery is consulted due to the patient just having a recent Cholecystectomy. Patient was placed on PRINT INSPECTOR and pain medications were adjusted. Patient's pain and nausea has bee
--- NOTE | 2021-11-07 07:30 | PM.DS ---
DS: Admitting Diagnosis Discharge Date 11/07/21729 Admitting Diagnosis Acute pain from acute patty DS: Discharge Diagnosis Discharge Diagnosis (1) Intractable abdominal pain: Code(s): R10.9 - Unspecified abdominal pain Status: Acute Assessment and Plan: Postop day 8 General surgery on board Abdominal CT shows fat stranding and trace fluid in the gallbladder fossa, and laboratory changes of the umbilicus HIDA scan was unremarkable without evidence of bile leak Pain medications on board Continue to trend pain Pain might be a little hard to control as the patient does drink a lot. (2) Postoperative abdominal pain: Code(s): R10.9 - Unspecified abdominal pain; G89.18 - Other acute postprocedural pain Status: Acute Assessment and Plan: See above (3) Cholelithiasis and acute cholecystitis without obstruction: Code(s): K80.00 - Calculus of gallbladder with acute cholecystitis without obstruction Status: Chronic Assessment and Plan: status post cholecystectomy on 10/30/2021 General surgery on the case Continue Trend pain Pain medications available (4) T1DM (type 1 diabetes mellitus): Qualifiers: Diabetes mellitus complication status: with hyperglycemia Qualified Code(s): E10.65 - Type 1 diabetes mellitus with hyperglycemia Code(s): E10.9 - Type 1 diabetes mellitus without complications Status: Chronic Assessment and Plan: Current glucose 192 Patient uses an insulin device Last A1c from 10/27/2021 was 5.9 Continue trend glucose Adjust therapy as indicated Hypoglycemia protocol (5) Cirrhosis: Code(s): K74.60 - Unspecified cirrhosis of liver Status: Chronic Assessment and Plan: Abdominal CT notes cirrhosis Education about alcohol cessation given for 9 minutes Patient notes to drink about 30-40 drinks a week Last drink was 10/25/2021 No indication for CIWA need (6) Ulcerative colitis: Code(s): K51.90 - Ulcerative colitis, unspecified, without complications Status: Acute Assessment and Plan: Patient was diagnosed evidently in [place] No indication of the CT scan White blood cell count 6.4 (7) Alcohol abuse: Code(s): F10.10 - Alcohol abuse, uncomplicated Status: Chronic Assessment and Plan: History of heavy drinking with current use of 30-40 drinks per week Cirrhosis noted on CT During cessation provided to patient Last drink was 10/27/2021 no indication for CIWA at this time ETOH cessation education given (8) Hypertension: Code(s): I10 - Essential (primary) hypertension Status: Acute Assessment and Plan: Current BP 132/79 No home therapy Probably related to pain Trend Blood pressure Adjust therapy as indicated Consider initiating therapy if indicated DS: Summary Hospital Course Hospital Course: Patient is a 26-year-old male with a past medical history of type 1 diabetes and alcohol abuse who presented to the ED with complaints of severe pain. General surgery is consulted due to the patient just having a recent Cholecystectomy. Patient was placed on FOREST PRACTICES FIELD COORDINATOR and pain medications were adjusted. Patient's pain and nausea has been well controlled. He denies any chest pain currently including shortness of breath, nausea vomiting, diarrhea, constipation, weakness or fatigue. HIDA scan did not show any acute abnormalities Including stones, blockages, bile leak. Lipase was normal. White blood cell count was normal. Glucose has been controlled and A1c is 5.9. CT did show cirrhosis which the patient stated that he knew about in [place]. However I re-educated the patient about drinking cessation as this is an important finding. Patient did verbalize understanding. I did update the patient with plan of care and answered all questions.
[2021-11-07 08:01] LABS: Glucose Point of Care 226 mg/dl (65-105)
[2021-11-07] MEDS: ENOXAPARIN 40 MG/0.4 ML SYRINGE SUB-Q (08:20)
--- NOTE | 2021-11-07 09:52 | PM.DS ---
DS: Admitting Diagnosis Discharge Date 11/07/2021 Admitting Diagnosis intractable postoperative abdominal pain chronic cholecystitis cholelithiasis status post lap choly 10/30/2021. Type 1 insulin-dependent diabetes cirrhosis history suicidal ideations history of ulcerative colitis DS: Discharge Diagnosis Discharge Diagnosis (1) Postoperative abdominal pain: Code(s): R10.9 - Unspecified abdominal pain; G89.18 - Other acute postprocedural pain Status: Acute Assessment and Plan: patient admitted 4 days after laparoscopic cholecystectomy with intractable abdominal pain primarily in the epigastric area. (2) Cholelithiasis and acute cholecystitis without obstruction: Code(s): K80.00 - Calculus of gallbladder with acute cholecystitis without obstruction Status: Chronic (3) T1DM (type 1 diabetes mellitus): Qualifiers: Diabetes mellitus complication status: with hyperglycemia Qualified Code(s): E10.65 - Type 1 diabetes mellitus with hyperglycemia Code(s): E10.9 - Type 1 diabetes mellitus without complications Status: Chronic Assessment and Plan: Hospitalist consultation requested on admission and diabetes and other medical problems managed per hospitalist service. (4) Alcohol abuse: Code(s): F10.10 - Alcohol abuse, uncomplicated Status: Chronic (5) Cirrhosis: Code(s): K74.60 - Unspecified cirrhosis of liver Status: Chronic DS: Summary Hospital Course Hospital Course: Patient underwent laparoscopic cholecystectomy for chronic cholecystitis cholelithiasis on 10/30/2021. He was discharged on 11/01/2021 after being in the hospital for 2 days after surgery. Patient called on the day of admission, 11/03/2021. He was experiencing a severe abdominal pain that was not at all responsive to his pain medication. He was instructed to go to the emergency room which he did. He was evaluated there and was noted to be in severe pain more in the epigastric area but diffusely throughout the abdomen. He was evaluated in the emergency room with lab testing. White blood cell count was normal. H&H was normal. His liver functions were nearly normal. His bilirubin was 1.4 which was actually a little better than when he had left the hospital. He had a CT scan of the abdomen pelvis which showed only postoperative changes. There was minimal fluid in the right upper quadrant. A HIDA scan was performed which was negative for any bile leak. The patient was admitted and started on narcotic analgesics. Initially these were not satisfactory and he was changed to morphine sulfate DIRECTOR OF VOCATIONAL TRAINING. He then had a lot of nausea which seemed to be worse after administering a dose of the morphine. He was changed to a fentanyl DIRECTOR OF VOCATIONAL TRAINING and q.6 hours IV ibuprofen. He tolerated this well and actually his pain started to improve. The change to fentanyl DIRECTOR OF VOCATIONAL TRAINING was done on hospital day 2. , 11/05/2021. The next day, 11/06/2021, he was able to have the DIRECTOR OF VOCATIONAL TRAINING discontinued and continued to have much less abdominal pain. He really was comfortable on oral analgesics most of the day yesterday and did not require any IV analgesics. He had been eating well throughout other than when he was nauseated while on the morphine sulfate DIRECTOR OF VOCATIONAL TRAINING. He is comfortable and anxious to be discharged today in much improved condition. Hospitalist service saw him for medical management. His blood sugars have been well controlled with morning glucose levels under 200 each of the last 3 days. By the time of discharge, it seemed most likely that the patient was very sensitive to pain. Probably the epigastric trocar site, which was larger and did require fascial closure (a normal part of the surgery), was the source of the patient's postoperative pain. He had no evidence of complications of his surgery. Status at Discharge Functional status at discharge: independent ambulation Overall status at discharge: patient is progressing
--- NOTE | 2021-11-07 11:10 | PC.NURSE ---
Home medication was returned to patient prior to discharge. Counted returned medication with patient all was correct.
== END 2021-11-07 11:19 | disposition home or self-care (01) | DRG 948 ==
LOC: ANHED 18:32 → ANH3MEDSUR 19:24
PROVIDERS: Nurse Practitioner; Admitting Provider Surgery; Emergency Provider Emergency Medicine; PCP Family Medicine; Visit Provider Surgery
DX: G89.18 Other acute postprocedural pain (principal); K51.90 Ulcerative colitis, unspecified, without complications; R10.9 Unspecified abdominal pain; E10.9 Type 1 diabetes mellitus without complications; K74.60 Unspecified cirrhosis of liver; R11.2 Nausea with vomiting, unspecified; F10.10 Alcohol abuse, uncomplicated; Z20.822 Contact with and (suspected) exposure to COVID-19; Z96.41 Presence of insulin pump (external) (internal); Z87.891 Personal history of nicotine dependence; Z90.49 Acquired absence of other specified parts of digestive tract
CPT/HCPCS: 36415; 74177; 78226; 80048; 80053; 81001; 82948; 83690; 83735; 85025; 87040; 96361; 96365; 96366; 96367; 96372; 96374; 96375; 96376; 99285; A9270; A9537; C9113; C9803; G0378; J1170; J1200; J1650; J1741; J2270; J2405; J2765; J3010; J7030; Q9967; U0003; U0005

== ENCOUNTER 2021-12-04 08:10 | Outpatient (CLI) | payer OTHER, SELFPAY ==
--- NOTE | ~2021-12-04 | CT_ITS ---
EXAMINATION: CT abdomen wo con DATE: 12/04/2021 08:28 INDICATION: Postoperative abdominal pain TECHNIQUE: Computed tomography (CT) of the abdomen was performed without intravenous contrast. Automa antonia exposure control and iterative reconstruction technique were employed. Exam dose: 506.82 mGy-cm total exam DLP. COMPARISON: 11/03/2021 CT abdomen pelvis 11/03/2021 radionuclide hepatobiliary scan 10/27/2021 Limited abdominal ultrasound examination FINDINGS: Mild emphysematous changes of the lungs are suggested. Normal heart size. No pericardial or pleural effusion. Status post cholecystectomy. No hepatic space-occupying mass lesion is noted. No abnormal fluid colle ction is noted in the gallbladder fossa. No bile duct or pancreatic duct dilatation. No pancreatic ma ss lesion or calcification is detected. Approximately 15.7 cm vertical dimension of the spleen, consistent with splenomegaly. Normal morphology of the adrenal glands. No renal mass lesion or urinary tract calculus or hydroureteronephrosis is detected. Normal caliber of the abdominal aorta. No intraperitoneal or retroperitoneal mass lesion or adenopath y or ascites. Normal appendix. No bowel obstruction, bowel wall thickening, pneumatosis or intraperitoneal free air . Left L5 pars interarticularis defect. The right L5 pars interarticularis is intact. No spondylolisthe sis. No other fracture or any osteolytic or osteosclerotic lesion is detected. IMPRESSION: Status post cholecystectomy Splenomegaly Mild emphysema is suggested Left L5 pars interarticularis defect Reviewed, dictated and finalized at [facility]. Reviewed, dictated and finalized at [facility].
== END 2021-12-04 08:11 ==
LOC: MICIMG 08:11
PROVIDERS: PCP Family Medicine; Visit Provider Surgery
DX: R10.13 Epigastric pain (principal); Z90.49 Acquired absence of other specified parts of digestive tract; R16.1 Splenomegaly, not elsewhere classified; J43.9 Emphysema, unspecified; M53.86 Other specified dorsopathies, lumbar region
CPT/HCPCS: 74150